=== PATIENT | male | born 1950 | race American Indian/Alaskan Native ===

== ENCOUNTER 2019-02-01 08:47 | Day surgery (SDC) | payer MEDICARE ==
[2019-02-01] MEDS ORDERED: fentaNYL 100 MCG/2 ML INJ IV PRN (10:12)
--- NOTE | 2019-02-01 10:12 | Anesthesia Consultation ---
Anesthesia Consult and Med Hx Date of service: 02/01/19 - Airway Anesthetic Teeth Evaluation: Dentures ROM Head & Neck: Adequate Mental/Hyoid Distance: Adequate Mallampati Class: Class III Intubation Access Assessment: Possibly Difficult - Pulmonary Exam CTA: Yes - Cardiac Exam Cardiac Exam: RRR - Pre-Operative Health Status ASA Pre-Surgery Classification: ASA3 Proposed Anesthetic Plan: General - Pulmonary Hx Smoking: Yes (quit 30yrs ago) Hx Respiratory Symptoms: No Hx Sleep Apnea: No (MICHELLE PRE SCREEN HIGH RISK.) - Cardiovascular System Hx Hypertension: Yes (took antihypertensives this morning) Hx Heart Attack/AMI: No Hx Percutaneous Transluminal Coronary Angioplasty (PTCA): Yes (EJ to OM1 01/15/19) Hx Cardia Arrhythmia: No Hx Pacemaker: No Hx Internal Defibrillator: No Hx Peripheral Vascular Disease: No - Central Nervous System CVA: No - Gastrointestinal Hx Gastroesophageal Reflux Disease: Yes (controlled) - Endocrine Hx Renal Disease: No Hx Liver Disease: No Hx Insulin Dependent Diabetes: No Hx Non-Insulin Dependent Diabetes: No Hx Thyroid Disease: No - Additional Comments Anesthesia Medical History Comments: Patient had LHC as part of pre-op eval and had EJ to OM1 placed on 01/15/19. No angina or TESFAYE since stent placement. No evidence of decompensation on exam. Review of most recent ACC/AHA guidelines recommend minimum 2wks after stent placement for elective surgery (patient currently past 2wk woody). Cardiac clearance on chart. Patient has continued DAPT as instructed. Will discuss with surgeon.
--- NOTE | 2019-02-01 10:12 | Anesthesia Day of Surgery ---
Anesthesia Day of Surgery - Day of Surgery Patient Examined: Yes Patient H&P Reviewed: Yes Patient is NPO: Yes Beta Blockers: Yes Cardiac Clearance: Yes
[2019-02-01] MEDS ORDERED: ceFAZolin/Water 2 GM/20 ML 2 GM/20 ML SYRINGE IV ONE (11:13)
[2019-02-01] MEDS ORDERED: SODIUM CHLORIDE 0.9% 1000 ML 1,000 ML IV SCH (11:15)
[2019-02-01] MEDS ORDERED: ceFAZolin/Water 2 GM/20 ML 2 GM/20 ML SYRINGE IV NR (11:16)
[2019-02-01] MEDS ORDERED: PROPOFOL 200 MG/20 ML VIAL IV ONE (11:36)
[2019-02-01] MEDS ORDERED: fentaNYL 100 MCG/2 ML INJ ONE (11:36)
[2019-02-01] MEDS ORDERED: LIDOCAINE MPF (2%) 20 MG/1 ML VIAL 5 ML ONE (11:37)
[2019-02-01] MEDS ORDERED: WATER FOR IRRIG STERILE 2000 ML IR ONE (12:05)
[2019-02-01] MEDS ORDERED: dexAMETHasone 20 MG/5 ML VIAL ONE (12:18)
[2019-02-01] MEDS ORDERED: ONDANSETRON 4 MG/2 ML INJ ONE (12:18)
[2019-02-01] MEDS ORDERED: PHENYLEPHRINE/NS 1,000 MCG/10 ML SYRINGE (OR USE) IV ONE (12:46)
--- NOTE | 2019-02-01 12:59 | Operative Report ---
PREOPERATIVE DIAGNOSES: Hematuria, elevated PSA and recent cardiac stent. POSTOPERATIVE DIAGNOSES: Hematuria, elevated PSA and recent cardiac stent. PROCEDURE: Cystoscopy, biopsy of bladder and excision of bladder lesion, fulguration retrogrades. SURGEON: Dr. Saeed. ANESTHESIA: General. FINDINGS: This is a gentleman with gross hematuria. He also has a PSA of 12. He could not be taken off the Plavix. As a compromise, we decided to do the cystoscopy to make sure there is no bladder cancer and we would do as minimal as possible because they could not stop the Plavix. In terms of the PSA that he knows he needs a prostate biopsy once he could stop the Plavix for a few days. DESCRIPTION OF PROCEDURE: The patient was brought to the operating room and placed on the operating table. Following induction of anesthesia, he was placed in the lithotomy position, prepped and draped in usual sterile fashion. Cystourethroscopy showed a lesion over the left orifice. Retrograde showed good delicate collecting system and drainage. We did not want to resect deep. We did not want to risk of increased bleeding. Using the biopsy instrument, which was the cold cup curved rigid, we excised the entire lesion down to bladder fibers. Area was cauterized. The patient tolerated the procedure well. We did not do random biopsies, prostate biopsies or anything else like that for fear of increasing the bleeding risk with Plavix. Mccartney catheter 16 was clear. The area was cauterized. The patient tolerated the procedure well. The plan will be followed up prostate biopsies and await pathology. His family notified. JOB# [id number] CHIO/CATHLEEN
--- NOTE | 2019-02-01 13:36 | Fluoroscopy Report ---
FLUOROSCOPY RETROGRADE UROGRAPHY HISTORY: Hematuria FINDINGS: 0.1 minutes of fluoroscopy time was provided by radiology during retrograde urography by josiah najera urologist. 5 fluoroscopic images are presented. There is normal opacification of the renal collecti ng systems bilaterally. No filling defect or abnormal dilatation is demonstrated. Bladder biopsy was performed per the operative notes. Please correlate with the procedural report as needed. Signer Name: Trent Mabry Jr, MD Signed: 02/01/2019 1:31 PM Workstation Name: [id number]
[2019-02-01 13:54] VITALS: BP 147/74
--- NOTE | 2019-02-01 14:05 | Post Operative Note ---
Date of procedure: 02/01/19 Pre-op diagnosis: hematuria Post-op diagnosis: same Findings: bladder tumor inc psa Procedure: cysto excision tumor Anesthesia: GETA Surgeon: JERRY TEMPLE Estimated blood loss: minimal Pathology: list (bladder) Specimen disposition: to lab Condition: stable Disposition: PACU
--- NOTE | 2019-02-01 14:06 | Discharge Summary ---
Short Stay Discharge Plan Activity: other (no straining ) Weight Bearing Status: Full Weight Bearing Diet: low fat, low cholesterol, low salt Special Instructions: other (inc fluids ) Durable Medical Equipment Needed Upon Discharge: other (teach khan care ) Additional Instructions: FOLLOW SURGEON'S INSTRUCTIONS FOLLOW UP WITH SURGEON TAKE MEDICATIONS PRESCRIBED Follow up with: JAZ GARCIA MD [Primary Care Provider] - 7 Days JERRY TEMPLE MD [Staff Physician] - 02/02/19 Forms: [facility]
--- NOTE | 2019-02-01 22:43 | Post Anesthesia Evaluation ---
- Post Anesthesia Evaluation Patient Participated: Yes Airway Patent: Yes Stable Respiratory Function: Yes Nausea/Vomiting: No Temp > 96.8F: Yes Pain Manageable: Yes Adequeate Hydration: Yes Anesthesia Complications: No Block Receding Appropriately: Not Applicable Patient on Ventilator: No
== END 2019-02-01 14:36 | disposition home or self-care (01) ==
LOC: OR 08:47 → EDSEX 11:15 → OR 14:36
PROVIDERS: ATTEND Urology
DX: R31.9 Hematuria, unspecified (principal); R97.20 Elevated prostate specific antigen [PSA]; N32.89 Other specified disorders of bladder; I42.9 Cardiomyopathy, unspecified; K21.9 Gastro-esophageal reflux disease without esophagitis; Z79.899 Other long term (current) drug therapy; Z79.82 Long term (current) use of aspirin; Z87.891 Personal history of nicotine dependence; Z95.5 Presence of coronary angioplasty implant and graft; Z98.890 Other specified postprocedural states
CPT/HCPCS: 36415; 52204; 74420; 84132; 88305; A4217; C1758; J0690; J1100; J2370; J2405; J2704; J3010; J7030; Q9967

== ENCOUNTER 2019-04-19 07:32 | Day surgery (SDC) | payer MEDICARE ==
[2019-04-19] MEDS ORDERED: ONDANSETRON 4 MG/2 ML INJ IV PRN (08:33)
[2019-04-19] MEDS ORDERED: fentaNYL 100 MCG/2 ML INJ IV PRN (08:33)
--- NOTE | 2019-04-19 08:37 | Anesthesia Day of Surgery ---
Anesthesia Day of Surgery - Day of Surgery Patient Examined: Yes Patient H&P Reviewed: Yes Patient is NPO: Yes Beta Blockers: Yes Cardiac Clearance: Yes
--- NOTE | 2019-04-19 08:39 | Anesthesia Consultation ---
Anesthesia Consult and Med Hx Date of service: 04/19/19 - Airway Anesthetic Teeth Evaluation: Chipped, Partials ROM Head & Neck: Adequate Mental/Hyoid Distance: Adequate Mallampati Class: Class IV Intubation Access Assessment: Probably Good - Pre-Operative Health Status ASA Pre-Surgery Classification: ASA3 Proposed Anesthetic Plan: General - Pulmonary Hx Smoking: Yes (quit 30yrs ago) Hx Respiratory Symptoms: No SOB: Yes (SOB) Hx Sleep Apnea: No (MICHELLE PRE SCREEN HIGH RISK.) - Cardiovascular System Hx Hypertension: Yes (X 20 YRS) Hx Coronary Artery Disease: Yes Hx Heart Attack/AMI: No Hx Angina: No Hx Percutaneous Transluminal Coronary Angioplasty (PTCA): Yes (EJ to OM1 01/15/19) Hx Cardia Arrhythmia: No Hx Pacemaker: No Hx Internal Defibrillator: No Hx Peripheral Vascular Disease: No - Central Nervous System CVA: No - Gastrointestinal Hx Gastroesophageal Reflux Disease: Yes (controlled) - Endocrine Hx Renal Disease: No Hx Liver Disease: No Hx Insulin Dependent Diabetes: No Hx Non-Insulin Dependent Diabetes: No Hx Thyroid Disease: No - Other Systems Hx Cancer: Yes (ELEVATED PSA- TO HAVE PROSTATE BX)
[2019-04-19] MEDS ORDERED: ASPIRIN 325 MG TAB PO NR (08:40)
[2019-04-19] MEDS ORDERED: LACTATED RINGERS 1,000 ML IV SCH (09:00)
[2019-04-19] MEDS ORDERED: ceFAZolin/STERILE WATER 2 GM/20 ML SYRINGE IV NR ×2 (09:18→09:33)
[2019-04-19] MEDS ORDERED: ONDANSETRON 4 MG/2 ML INJ ONE (09:34)
[2019-04-19] MEDS ORDERED: LIDOCAINE MPF (2%) 20 MG/1 ML VIAL 5 ML ONE (09:34)
[2019-04-19] MEDS ORDERED: propofoL 200 MG/20 ML VIAL IV ONE (09:35)
[2019-04-19] MEDS ORDERED: fentaNYL 100 MCG/2 ML INJ ONE (09:35)
[2019-04-19] MEDS ORDERED: CLOPIDOGREL 75 MG TAB PO SCH (10:00)
[2019-04-19] MEDS ORDERED: WATER FOR IRRIG STERILE 1,500 ML BOTTLE IR ONE (10:30)
[2019-04-19] MEDS ORDERED: IOHEXOL 300 MG/ML 50ML IV ONE (10:30)
--- NOTE | 2019-04-19 11:24 | Fluoroscopy Report ---
FLUOROSCOPY RETROGRADE UROGRAPHY HISTORY: Bladder neoplasm of uncertain behavior. FINDINGS: Fluoroscopy was provided by radiology during retrograde urography by the urologist. There is normal filling of both renal collecting systems. No filling defect or abnormal dilatation is ident ified. IMPRESSION: Unremarkable lateral retrograde pyelograms Fluoroscopy time: 15 seconds Fluoroscopic images: 5 Signer Name: Trent Mabry Jr, MD Signed: 04/19/2019 11:19 AM Workstation Name: [id number]
[2019-04-19 11:40] VITALS: BP 131/67
--- NOTE | 2019-04-19 12:19 | Post Anesthesia Evaluation ---
- Post Anesthesia Evaluation Patient Participated: Yes Airway Patent: Yes Stable Respiratory Function: Yes Nausea/Vomiting: No Temp > 96.8F: Yes Pain Manageable: Yes Adequeate Hydration: Yes Anesthesia Complications: No
--- NOTE | 2019-04-19 12:45 | Post Operative Note ---
Date of procedure: 04/19/19 Pre-op diagnosis: tcc and inc psa Post-op diagnosis: same Findings: took plavix in holding Procedure: cysto bx rpg Anesthesia: GETA Surgeon: JERRY TEMPLE Estimated blood loss: none Pathology: list (bladder) Specimen disposition: to lab Condition: stable Disposition: PACU
--- NOTE | 2019-04-19 12:46 | Discharge Summary ---
Short Stay Discharge Plan Activity: other (fluids no straining ) Weight Bearing Status: Full Weight Bearing Diet: low fat, low cholesterol, low salt Special Instructions: other (fluids ) Durable Medical Equipment Needed Upon Discharge: other Additional Instructions: AVOID STRAINING. PLEASE CALL FOR F/U APPT. Follow up with: JAZ GARCIA MD [Primary Care Provider] - 7 Days Forms: [facility]
--- NOTE | 2019-04-22 10:36 | Operative Report ---
PREOPERATIVE DIAGNOSES: History of bladder tumor, elevated PSA. Recent cardiac stent. POSTOPERATIVE DIAGNOSES: History of bladder tumor, elevated PSA. Recent cardiac stent. PROCEDURES: Cystoscopy, biopsy, retrograde. SURGEON: Dr. Saeed. ANESTHESIA: General. FINDINGS: This is a gentleman who has not been compliant. Against medical advice he stopped his Plavix. Operative note was dictated. This is a second dictation. DESCRIPTION OF PROCEDURE: The patient was brought to the outpatient operating table. Following induction of anesthesia, placed in lithotomy position, prepped and draped in usual sterile fashion. Cystourethroscopy showed the slight erythema around the old scar. This was biopsied and cauterized without difficulty. Retrograde was carried out, showed no persistent filling defect. We were told that he was given Plavix and aspirin in the holding area because he refused to take it for the last 2 days. Therefore, I did not do prostate biopsies. Once again we were told by the firer tunnel kiln and by the medical records custodian not to do prostate biopsies until July. Now that he got Plavix I did not want to cause issues. He will have this done in July or August. He could not be off the Plavix. The patient knew this and still stopped it for 2-3 days. He was brought to recovery in stable condition. JOB# [id number] CHIO/CATHLEEN
== END 2019-04-19 12:45 | disposition home or self-care (01) ==
LOC: OR 07:32
PROVIDERS: ATTEND Urology
DX: N32.89 Other specified disorders of bladder (principal); R97.20 Elevated prostate specific antigen [PSA]; I42.9 Cardiomyopathy, unspecified; E78.00 Pure hypercholesterolemia, unspecified; I10 Essential (primary) hypertension; K21.9 Gastro-esophageal reflux disease without esophagitis; Z85.51 Personal history of malignant neoplasm of bladder; Z95.5 Presence of coronary angioplasty implant and graft; Z79.899 Other long term (current) drug therapy; Z87.891 Personal history of nicotine dependence; Z98.890 Other specified postprocedural states
CPT/HCPCS: 36415; 52204; 74420; 84132; 88112; 88305; 88342; J2405; J2704; J3010; J7120; Q9967

== ENCOUNTER 2019-07-24 16:52 | Observation (INO) | payer MEDICARE ==
--- NOTE | 2019-07-24 17:50 | Emergency Department Report ---
ED Altered Mental Status HPI - General Chief Complaint: Overdose Stated Complaint: ALTERED MENTAL STATUS Time Seen by Provider: 07/24/19 17:43 Source: EMS Mode of arrival: Stretcher Limitations: Altered Mental Status - History of Present Illness Initial Comments: Patient is 69 years old male with history of coronary artery disease and hypertension. Patient brought to the emergency room via EMS from home for evaluation of altered mental status and decreased responsiveness. EMS stated that patient stated that he took too much Ambien. She denied any suicidal attempt. In the emergency room patient is slightly obtunded but able to answer some question right. He is oriented in place but not time and person. Patient currently denying any chest pain, shortness of breath, abdominal pain. Stroke scale exam is 0. Patient is also pointing to his left hip stating that it hurt however patient is able to lift his left lower extreme with no difficulties. MD Complaint: altered mental status, decreased responsiveness -: This afternoon Severity: moderate Consistency of Symptoms: constant - Related Data Home Medications Medication Instructions Recorded Confirmed Last Taken Aspirin [Adult Aspirin] 81 mg PO DAILY 01/25/19 07/24/19 07/19/19 07:00 Atorvastatin [Lipitor Tab] 80 mg PO QHS 01/25/19 07/24/19 07/18/19 Clopidogrel [Plavix] 75 mg PO QDAY 01/25/19 07/24/19 07/14/19 ISOSORBIDE MONOnitrate [Imdur ER] 30 mg PO DAILY 01/25/19 07/24/19 07/19/19 07:00 Metoprolol [Lopressor] 25 mg PO BID 01/25/19 07/24/19 07/19/19 07:00 Nitroglycerin [Nitrostat] 0.4 mg SL Q5M PRN 01/25/19 07/24/19 Unknown Olmesartan/Hydrochlorothiazide 1 each PO DAILY 01/25/19 07/24/19 07/19/19 07:00 [Olmesartan-Hctz 40-25 mg Tab] Pantoprazole [Protonix] 40 mg PO QDAY 01/25/19 07/24/19 07/19/19 07:00 cloNIDine [Catapres] 0.2 mg PO QHS 01/25/19 07/24/19 07/18/19 traMADoL [Ultram] 50 mg PO Q4HR PRN 01/25/19 07/24/19 07/18/19 Allergies Allergy/AdvReac Type Severity Reaction Status Date / Time No Known Allergies Allergy Verified 01/25/19 16:49 ED Review of Systems ROS: Stated complaint: ALTERED MENTAL STATUS Other details as noted in HPI Comment: All other systems reviewed and negative Constitutional: denies: chills, fever Respiratory: denies: cough, shortness of breath, SOB with exertion Cardiovascular: denies: chest pain, palpitations Gastrointestinal: denies: abdominal pain, nausea, vomiting Musculoskeletal: denies: back pain Neurological: denies: headache, weakness, numbness, paresthesias, confusion, abnormal gait ED Past Medical Hx - Past Medical History Hx Hypertension: Yes Hx Heart Attack/AMI: No Hx GERD: Yes (ON DAILY MEDS) Hx Liver Disease: No Hx Renal Disease: No Hx HIV: No - Surgical History Hx Coronary Stent: Yes (2005 X 1 , 01/15/19 X 1) Hx Pacemaker: No Hx Internal Defibrillator: No - Social History Smoking Status: Never Smoker - Medications Home Medications: Home Medications Medication Instructions Recorded Confirmed Last Taken Type Aspirin [Adult Aspirin] 81 mg PO DAILY 01/25/19 07/24/19 07/19/19 07:00 History Atorvastatin [Lipitor Tab] 80 mg PO QHS 01/25/19 07/24/19 07/18/19 History Clopidogrel [Plavix] 75 mg PO QDAY 01/25/19 07/24/19 07/14/19 History ISOSORBIDE MONOnitrate [Imdur ER] 30 mg PO DAILY 01/25/19 07/24/19 07/19/19 07:00 History Metoprolol [Lopressor] 25 mg PO BID 01/25/19 07/24/19 07/19/19 07:00 History Nitroglycerin [Nitrostat] 0.4 mg SL Q5M PRN 01/25/19 07/24/19 Unknown History Olmesartan/Hydrochlorothiazide 1 each PO DAILY 01/25/19 07/24/19 07/19/19 07:00 History [Olmesartan-Hctz 40-25 mg Tab] Pantoprazole [Protonix] 40 mg PO QDAY 01/25/19 07/24/19 07/19/19 07:00 History cloNIDine [Catapres] 0.2 mg PO QHS 01/25/19 07/24/19 07/18/19 History traMADoL [Ultram] 50 mg PO Q4HR PRN 01/25/19 07/24/19 07/18/19 History ED Physical Exam - General Limitations: Altered Mental Status General appearance: alert, in no apparent distress - Head Head exam: Present: atraumatic, normocephalic, normal inspection - Eye Eye exam: Present: normal appearance - ENT ENT exam: Present: normal exam, normal orophraynx, mucous membranes moist - Neck Neck exam: Present: normal inspection, full ROM. Absent: tenderness, meningismus, lymphadenopathy, thyromegaly - Respiratory Respiratory exam: Present: normal lung sounds bilaterally - Cardiovascular Cardiovascular Exam: Present: regular rate, normal rhythm, normal heart sounds - GI/Abdominal GI/Abdominal exam: Present: soft, normal bowel sounds. Absent: distended, tenderness, guarding, rebound, rigid, organomegaly, mass, bruit, pulsatile mass, hernia - Extremities Exam Extremities exam: Present: normal inspection, full ROM, normal capillary refill. Absent: tenderness, pedal edema, calf tenderness - Back Exam Back exam: Present: normal inspection, full ROM. Absent: CVA tenderness (R), CVA tenderness (L) - Neurological Exam Neurological exam: Present: alert, altered, CN II-XII intact, reflexes normal. Absent: motor sensory deficit - Psychiatric Psychiatric exam: Present: normal mood - Skin Skin exam: Present: warm, intact, normal color ED Course Vital Signs 07/24/19 07/24/19 07/24/19 18:15 18:49 19:57 Pulse Rate 57 L 56 L Respiratory 20 20 Rate Blood Pressure 87/50 82/47 97/48 [Left] O2 Sat by Pulse 97 97 Oximetry - Lab Data Result diagrams: 07/24/19 17:49 07/24/19 17:49 Lab Results 07/24/19 07/24/19 07/24/19 Range/Units 17:49 17:49 17:49 WBC 8.6 (4.5-11.0) K/mm3 RBC 4.59 (3.65-5.03) M/mm3 Hgb 11.8 (11.8-15.2) gm/dl Hct 37.2 (35.5-45.6) % MCV 81 L (84-94) fl MCH 26 L (28-32) pg MCHC 32 (32-34) % RDW 15.0 (13.2-15.2) % Plt Count 273 (140-440) K/mm3 Lymph % (Auto) 25.3 (13.4-35.0) % [place] % (Auto) 7.4 H (0.0-7.3) % Eos % (Auto) 1.0 (0.0-4.3) % Baso % (Auto) 1.1 (0.0-1.8) % Lymph # 2.2 (1.2-5.4) K/mm3 [place] # 0.6 (0.0-0.8) K/mm3 Eos # 0.1 (0.0-0.4) K/mm3 Baso # 0.1 (0.0-0.1) K/mm3 Seg Neutrophils % 65.2 (40.0-70.0) % Seg Neutrophils # 5.6 (1.8-7.7) K/mm3 PT 13.4 (12.2-14.9) Sec. INR 1.04 (0.87-1.13) APTT 28.6 (24.2-36.6) Sec. Sodium 138 (137-145) mmol/L Potassium 4.3 (3.6-5.0) mmol/L Chloride 98.4 (98-107) mmol/L Carbon Dioxide 24 (22-30) mmol/L Anion Gap 20 mmol/L BUN 23 H (9-20) mg/dL Creatinine 2.0 H (0.8-1.5) mg/dL Estimated GFR 40 ml/min BUN/Creatinine Ratio 12 % Glucose 125 H (75-100) mg/dL Lactic Acid (0.7-2.0) mmol/L Calcium 9.1 (8.4-10.2) mg/dL Total Bilirubin 0.40 (0.1-1.2) mg/dL Direct Bilirubin < 0.2 (0-0.2) mg/dL Indirect Bilirubin 0.2 mg/dL AST 16 (5-40) units/L ALT 9 (7-56) units/L Alkaline Phosphatase 122 (35-129) units/L Ammonia (25-60) umol/L Troponin T < 0.010 (0.00-0.029) ng/mL Total Protein 7.6 (6.3-8.2) g/dL Albumin 4.1 (3.9-5) g/dL Albumin/Globulin Ratio 1.2 % TSH (0.270-4.200) mlU/mL Urine Color (Yellow) Urine Turbidity (Clear) Urine pH (5.0-7.0) Ur Specific [place] (1.003-1.030) Urine Protein (Negative) mg/dL Urine Glucose (UA) (Negative) mg/dL Urine Ketones (Negative) mg/dL Urine Blood (Negative) Urine Nitrite (Negative) Urine Bilirubin (Negative) Urine Urobilinogen (<2.0) mg/dL Ur Leukocyte Esterase (Negative) Urine WBC (Auto) (0.0-6.0) /HPF Urine RBC (Auto) (0.0-6.0) /HPF U Epithel Cells (Auto) (0-13.0) /HPF Salicylates (2.8-20.0) mg/dL Urine Opiates Screen Urine Methadone Screen Acetaminophen (10.0-30.0) ug/mL Ur Barbiturates Screen Ur Phencyclidine Scrn Ur Amphetamines Screen U Benzodiazepines Scrn Urine Cocaine Screen U Marijuana (THC) Screen Drugs of Abuse Note Plasma/Serum Alcohol (0-0.07) % 07/24/19 07/24/19 07/24/19 Range/Units 17:49 17:49 17:49 WBC (4.5-11.0) K/mm3 RBC (3.65-5.03) M/mm3 Hgb (11.8-15.2) gm/dl Hct (35.5-45.6) % MCV (84-94) fl MCH (28-32) pg MCHC (32-34) % RDW (13.2-15.2) % Plt Count (140-440) K/mm3 Lymph % (Auto) (13.4-35.0) % [place] % (Auto) (0.0-7.3) % Eos % (Auto) (0.0-4.3) % Baso % (Auto) (0.0-1.8) % Lymph # (1.2-5.4) K/mm3 [place] # (0.0-0.8) K/mm3 Eos # (0.0-0.4) K/mm3 Baso # (0.0-0.1) K/mm3 Seg Neutrophils % (40.0-70.0) % Seg Neutrophils # (1.8-7.7) K/mm3 PT (12.2-14.9) Sec. INR (0.87-1.13) APTT (24.2-36.6) Sec. Sodium (137-145) mmol/L Potassium (3.6-5.0) mmol/L Chloride (98-107) mmol/L Carbon Dioxide (22-30) mmol/L Anion Gap mmol/L BUN (9-20) mg/dL Creatinine (0.8-1.5) mg/dL Estimated GFR ml/min BUN/Creatinine Ratio % Glucose (75-100) mg/dL Lactic Acid 1.80 (0.7-2.0) mmol/L Calcium (8.4-10.2) mg/dL Total Bilirubin (0.1-1.2) mg/dL Direct Bilirubin (0-0.2) mg/dL Indirect Bilirubin mg/dL AST (5-40) units/L ALT (7-56) units/L Alkaline Phosphatase (35-129) units/L Ammonia 53.0 (25-60) umol/L Troponin T (0.00-0.029) ng/mL Total Protein (6.3-8.2) g/dL Albumin (3.9-5) g/dL Albumin/Globulin Ratio % TSH 1.570 (0.270-4.200) mlU/mL Urine Color (Yellow) Urine Turbidity (Clear) Urine pH (5.0-7.0) Ur Specific [place] (1.003-1.030) Urine Protein (Negative) mg/dL Urine Glucose (UA) (Negative) mg/dL Urine Ketones (Negative) mg/dL Urine Blood (Negative) Urine Nitrite (Negative) Urine Bilirubin (Negative) Urine Urobilinogen (<2.0) mg/dL Ur Leukocyte Esterase (Negative) Urine WBC (Auto) (0.0-6.0) /HPF Urine RBC (Auto) (0.0-6.0) /HPF U Epithel Cells (Auto) (0-13.0) /HPF Salicylates (2.8-20.0) mg/dL Urine Opiates Screen Urine Methadone Screen Acetaminophen (10.0-30.0) ug/mL Ur Barbiturates Screen Ur Phencyclidine Scrn Ur Amphetamines Screen U Benzodiazepines Scrn Urine Cocaine Screen U Marijuana (THC) Screen Drugs of Abuse Note Plasma/Serum Alcohol (0-0.07) % 07/24/19 07/24/19 07/24/19 Range/Units 17:49 17:49 17:49 WBC (4.5-11.0) K/mm3 RBC (3.65-5.03) M/mm3 Hgb (11.8-15.2) gm/dl Hct (35.5-45.6) % MCV (84-94) fl MCH (28-32) pg MCHC (32-34) % RDW (13.2-15.2) % Plt Count (140-440) K/mm3 Lymph % (Auto) (13.4-35.0) % [place] % (Auto) (0.0-7.3) % Eos % (Auto) (0.0-4.3) % Baso % (Auto) (0.0-1.8) % Lymph # (1.2-5.4) K/mm3 [place] # (0.0-0.8) K/mm3 Eos # (0.0-0.4) K/mm3 Baso # (0.0-0.1) K/mm3 Seg Neutrophils % (40.0-70.0) % Seg Neutrophils # (1.8-7.7) K/mm3 PT (12.2-14.9) Sec. INR (0.87-1.13) APTT (24.2-36.6) Sec. Sodium (137-145) mmol/L Potassium (3.6-5.0) mmol/L Chloride (98-107) mmol/L Carbon Dioxide (22-30) mmol/L Anion Gap mmol/L BUN (9-20) mg/dL Creatinine (0.8-1.5) mg/dL Estimated GFR ml/min BUN/Creatinine Ratio % Glucose (75-100) mg/dL Lactic Acid (0.7-2.0) mmol/L Calcium (8.4-10.2) mg/dL Total Bilirubin (0.1-1.2) mg/dL Direct Bilirubin (0-0.2) mg/dL Indirect Bilirubin mg/dL AST (5-40) units/L ALT (7-56) units/L Alkaline Phosphatase (35-129) units/L Ammonia (25-60) umol/L Troponin T (0.00-0.029) ng/mL Total Protein (6.3-8.2) g/dL Albumin (3.9-5) g/dL Albumin/Globulin Ratio % TSH (0.270-4.200) mlU/mL Urine Color (Yellow) Urine Turbidity (Clear) Urine pH (5.0-7.0) Ur Specific [place] (1.003-1.030) Urine Protein (Negative) mg/dL Urine Glucose (UA) (Negative) mg/dL Urine Ketones (Negative) mg/dL Urine Blood (Negative) Urine Nitrite (Negative) Urine Bilirubin (Negative) Urine Urobilinogen (<2.0) mg/dL Ur Leukocyte Esterase (Negative) Urine WBC (Auto) (0.0-6.0) /HPF Urine RBC (Auto) (0.0-6.0) /HPF U Epithel Cells (Auto) (0-13.0) /HPF Salicylates < 0.3 L (2.8-20.0) mg/dL Urine Opiates Screen Urine Methadone Screen Acetaminophen < 5.0 L (10.0-30.0) ug/mL Ur Barbiturates Screen Ur Phencyclidine Scrn Ur Amphetamines Screen U Benzodiazepines Scrn Urine Cocaine Screen U Marijuana (THC) Screen Drugs of Abuse Note Plasma/Serum Alcohol < 0.01 (0-0.07) % 07/24/19 07/24/19 Range/Units 18:55 18:55 WBC (4.5-11.0) K/mm3 RBC (3.65-5.03) M/mm3 Hgb (11.8-15.2) gm/dl Hct (35.5-45.6) % MCV (84-94) fl MCH (28-32) pg MCHC (32-34) % RDW (13.2-15.2) % Plt Count (140-440) K/mm3 Lymph % (Auto) (13.4-35.0) % [place] % (Auto) (0.0-7.3) % Eos % (Auto) (0.0-4.3) % Baso % (Auto) (0.0-1.8) % Lymph # (1.2-5.4) K/mm3 [place] # (0.0-0.8) K/mm3 Eos # (0.0-0.4) K/mm3 Baso # (0.0-0.1) K/mm3 Seg Neutrophils % (40.0-70.0) % Seg Neutrophils # (1.8-7.7) K/mm3 PT (12.2-14.9) Sec. INR (0.87-1.13) APTT (24.2-36.6) Sec. Sodium (137-145) mmol/L Potassium (3.6-5.0) mmol/L Chloride (98-107) mmol/L Carbon Dioxide (22-30) mmol/L Anion Gap mmol/L BUN (9-20) mg/dL Creatinine (0.8-1.5) mg/dL Estimated GFR ml/min BUN/Creatinine Ratio % Glucose (75-100) mg/dL Lactic Acid (0.7-2.0) mmol/L Calcium (8.4-10.2) mg/dL Total Bilirubin (0.1-1.2) mg/dL Direct Bilirubin (0-0.2) mg/dL Indirect Bilirubin mg/dL AST (5-40) units/L ALT (7-56) units/L Alkaline Phosphatase (35-129) units/L Ammonia (25-60) umol/L Troponin T (0.00-0.029) ng/mL Total Protein (6.3-8.2) g/dL Albumin (3.9-5) g/dL Albumin/Globulin Ratio % TSH (0.270-4.200) mlU/mL Urine Color [place] (Yellow) Urine Turbidity Clear (Clear) Urine pH 5.0 (5.0-7.0) Ur Specific [place] 1.029 (1.003-1.030) Urine Protein <15 mg/dl (Negative) mg/dL Urine Glucose (UA) Neg (Negative) mg/dL Urine Ketones Neg (Negative) mg/dL Urine Blood Neg (Negative) Urine Nitrite Neg (Negative) Urine Bilirubin Neg (Negative) Urine Urobilinogen < 2.0 (<2.0) mg/dL Ur Leukocyte Esterase Tr (Negative) Urine WBC (Auto) 2.0 (0.0-6.0) /HPF Urine RBC (Auto) 2.0 (0.0-6.0) /HPF U Epithel Cells (Auto) 2.0 (0-13.0) /HPF Salicylates (2.8-20.0) mg/dL Urine Opiates Screen Presumptive negative Urine Methadone Screen Presumptive negative Acetaminophen (10.0-30.0) ug/mL Ur Barbiturates Screen Presumptive positive Ur Phencyclidine Scrn Presumptive negative Ur Amphetamines Screen Presumptive negative U Benzodiazepines Scrn Presumptive negative Urine Cocaine Screen Presumptive negative U Marijuana (THC) Screen Presumptive negative Drugs of Abuse Note Disclamer Plasma/Serum Alcohol (0-0.07) % - EKG Data -: EKG Interpreted by Me EKG shows normal: sinus rhythm Rate: tachycardia Interpretation: no acute changes - Radiology Data Radiology results: report reviewed - Medical Decision Making Patient is 69 years old male with history of coronary artery disease and hypertension. Patient brought to the emergency room via EMS from home for evaluation of altered mental status and decreased responsiveness. EMS stated that patient stated that he took too much Ambien. She denied any suicidal attempt. In the emergency room patient is slightly obtunded but able to answer some question right. He is oriented in place but not time and person. Patient currently denying any chest pain, shortness of breath, abdominal pain. Stroke scale exam is 0. Patient is also pointing to his left hip stating that it hurt however patient is able to lift his left lower extreme with no difficulties. Patient found to have a blood pressure of 80/42. Patient received normal saline 1 L with significant improvement his blood pressure. EKG showed sinus tachycardia with no ST elevation. Labs reviewed and is unremarkable. Patient discussed with his who stated that he has been altered for the last 3 days since he had his prostate biopsy few days ago. She stated that he took extra dose of his Ambien and may be his nitroglycerin also. Patient CT brain is negative for acute finding. Left hip x-ray is unremarkable. I discussed the patient with Dr. Delarosa, he agreed to admit the patient for observation and further management. Critical Care Time: Yes Critical care time in (mins) excluding proc time.: 30 Critical care attestation.: If time is entered above; I have spent that time in minutes in the direct care of this critically ill patient, excluding procedure time. ED Disposition Clinical Impression: Altered mental status, Hypotension, Accidental drug overdose Disposition: [id number] OP ADMIT IP TO THIS HOSP Is pt being admited?: Yes Condition: Stable Referrals: PRIMARY CARE, [Primary Care Provider] - 3-5 Days
[2019-07-24 18:25] LABS: Basophils # (Auto) 0.1 K/mm3 (0.0-0.1); Basophils % (Auto) 1.1 % (0.0-1.8); Eosinophils # (Auto) 0.1 K/mm3 (0.0-0.4); Hematocrit 37.2 % (35.5-45.6); Hemoglobin 11.8 gm/dl (11.8-15.2); Lymphocytes # (Auto) 2.2 K/mm3 (1.2-5.4); Lymphocytes % (Auto) 25.3 % (13.4-35.0); Mean Corpuscular HGB Conc 32 % (32-34); Mean Corpuscular Volume 81 fl (84-94); Monocytes # (Auto) 0.6 K/mm3 (0.0-0.8); Monocytes % (Auto) 7.4 % (0.0-7.3); Platelet Count 273 K/mm3 (140-440); Red Blood Count 4.59 M/mm3 (3.65-5.03)
[2019-07-24 18:31] LABS: INR 1.04 (0.87-1.13)
[2019-07-24 18:32] LABS: Partial Thromboplastin Time 28.6 Sec. (24.2-36.6)
[2019-07-24] MEDS ORDERED: SODIUM CHLORIDE 0.9% 1000 ML 1,000 ML IV ONE ×2 (18:42→20:27)
[2019-07-24] MEDS ORDERED: SODIUM CHLORIDE 0.9% 1000 ML 1,000 ML ONE (18:45)
[2019-07-24 18:50] LABS: Alanine Aminotransferase 9 units/L (7-56); Albumin 4.1 g/dL (3.9-5); BUN/Creatinine Ratio 12; Blood Urea Nitrogen 23 mg/dL (9-20); Calcium 9.1 mg/dL (8.4-10.2); Hemolysis Index 3
--- NOTE | 2019-07-24 18:50 | Cat Scan Report ---
NONENHANCED CT SCAN OF THE HEAD: INDICATION / CLINICAL INFORMATION: 69 years Male; Altered Mental Status. TECHNIQUE: Routine CT head without contrast. All CT scans at this location are performed using CT dos e reduction for ALARA by means of automated exposure control. COMPARISON: None. FINDINGS: BRAIN / INTRACRANIAL CONTENTS: No acute hemorrhage, mass effect, midline shift, hydrocephalus, or ac [place], large territorial infarct. Chronic ischemic changes are seen in the right lentiform nucleus, put amen bilaterally, right centrum semiovale and in the corpus striatum. These are due to chronic small vessel disease. White matter low-attenuation lesions due to chronic small vessel disease seen. CRANIOCERVICAL JUNCTION: No significant abnormality. ORBITS: No significant abnormality of visualized orbits. SINUSES / MASTOIDS: Incidental retention cyst is seen in the left maxillary sinus. ADDITIONAL FINDINGS: None. IMPRESSION: No acute focal parenchymal lesion in the brain Signer Name: Bela Christiansen MD Signed: 07/24/2019 6:45 PM Workstation Name: [id number]
--- NOTE | 2019-07-24 18:57 | XRay Report ---
LEFT HIP RADIOGRAPH, 2 VIEWS INDICATION / CLINICAL INFORMATION: hip pain COMPARISON: None available. FINDINGS: BONES / JOINT(S): No acute displaced fracture or subluxation. Mild degenerative change of both hips. SOFT TISSUES: No significant abnormality. ADDITIONAL FINDINGS: None. Signer Name: Angie Fournier MD Signed: 07/24/2019 6:53 PM Workstation Name: [email or web address]
--- NOTE | 2019-07-24 18:58 | XRay Report ---
CHEST 1 VIEW INDICATION / CLINICAL INFORMATION: Altered Mental Status. COMPARISON: None available. FINDINGS: SUPPORT DEVICES: None. HEART / MEDIASTINUM: No significant abnormality. LUNGS / PLEURA: Mild bibasilar subsegmental atelectasis. No focal pulmonary consolidation. No pleural effusion. No pneumothorax. ADDITIONAL FINDINGS: No significant additional findings. IMPRESSION: 1. Mild bibasilar subsegmental atelectasis. Otherwise no significant abnormality identified. Signer Name: Angie Fournier MD Signed: 07/24/2019 6:54 PM Workstation Name: [id number]
[2019-07-24 19:03] LABS: Bilirubin,Direct < 0.2 mg/dL (0-0.2)
[2019-07-24 19:21] LABS: Bilirubin,Urine NEG (Negative); Blood,Urine NEG (Negative); Color,Urine Straw (Yellow); Protein,Urine <15 mg/dL mg/dL (Negative); Urobilinogen,Urine < 2.0 mg/dL (<2.0)
[2019-07-24 19:27] LABS: Amphetamine Screen,Urine PRESUMPTIVE NEGATIVE; Benzodiazepines Screen,Urine PRESUMPTIVE NEGATIVE; Cannabinoid Screen,Urine PRESUMPTIVE NEGATIVE; Cocaine Screen,Urine PRESUMPTIVE NEGATIVE; Methadone Screen,Urine PRESUMPTIVE NEGATIVE; Opiate Screen,Urine PRESUMPTIVE NEGATIVE
[2019-07-24] MEDS ORDERED: ACETAMINOPHEN 325 MG TAB PO PRN (21:46)
[2019-07-24] MEDS ORDERED: MAGNESIUM HYDROXIDE (MOM) ORAL LIQD UDC PO PRN (21:46)
[2019-07-24] MEDS ORDERED: ONDANSETRON 4 MG/2 ML INJ IV PRN (21:46)
--- NOTE | 2019-07-24 21:53 | History and Physical Report ---
History of Present Illness Date of examination: 07/24/19 Date of admission: 07/24/2019 Chief complaint: Altered mental status History of present illness: 69-year-old male with known history of coronary artery disease and hypertension brought into the emergency room today via EMS for changes in mental status and decreased responsiveness. Patient's had informed EMS that patient may have taken an overdose of his sleeping medication Ambien. He has been no homicidal or suicidal ideations. Upon arrival in the emergency room patient was said to be up obtunded. There has been no history of fever or chills, no chest pain or shortness of breath, no nausea vomiting, no diarrhea, no hematuria or dysuria. No headache or dizziness. Patient has become more alert and oriented during this history and physical and indicates he also took some tramadol for pain. He was slightly hypotensive upon arrival in the emergency room with systolic blood pressure in the 80s and was subsequently given some IV fluid with significant improvement in his blood pressure. His urine drug screen reveals barbiturates. All other work-up were unremarkable. Past History Past Medical History: CAD, hypertension, hyperlipidemia Past Surgical History: Other (Cardiac stent placement in 2015 and 2018) Social history: no significant social history Family history: no significant family history Medications and Allergies Allergies Allergy/AdvReac Type Severity Reaction Status Date / Time No Known Allergies Allergy Verified 01/25/19 16:49 Home Medications Medication Instructions Recorded Confirmed Last Taken Type Aspirin [Adult Aspirin] 81 mg PO DAILY 01/25/19 07/24/19 07/19/19 07:00 History Atorvastatin [Lipitor Tab] 80 mg PO QHS 01/25/19 07/24/19 07/18/19 History Clopidogrel [Plavix] 75 mg PO QDAY 01/25/19 07/24/19 07/14/19 History ISOSORBIDE MONOnitrate [Imdur ER] 30 mg PO DAILY 01/25/19 07/24/19 07/19/19 07:00 History Metoprolol [Lopressor] 25 mg PO BID 01/25/19 07/24/19 07/19/19 07:00 History Nitroglycerin [Nitrostat] 0.4 mg SL Q5M PRN 01/25/19 07/24/19 Unknown History Olmesartan/Hydrochlorothiazide 1 each PO DAILY 01/25/19 07/24/19 07/19/19 07:00 History [Olmesartan-Hctz 40-25 mg Tab] Pantoprazole [Protonix] 40 mg PO QDAY 01/25/19 07/24/19 07/19/19 07:00 History cloNIDine [Catapres] 0.2 mg PO QHS 01/25/19 07/24/19 07/18/19 History traMADoL [Ultram] 50 mg PO Q4HR PRN 01/25/19 07/24/19 07/18/19 History Active Meds: Active Medications Sodium Chloride (Nacl 0.9% 1000 Ml) 1,000 mls @ 250 mls/hr IV ONCE ONE Stop: 07/25/19 00:26 Last Admin: 07/24/19 21:16 Dose: 250 mls/hr Documented by: Review of Systems Constitutional: no fever, no chills Ears, nose, mouth and throat: no nasal congestion, no sore throat Cardiovascular: no chest pain, no palpitations Respiratory: no cough, no shortness of breath Gastrointestinal: no abdominal pain, no nausea, no vomiting, no diarrhea Genitourinary Male: no dysuria, no hematuria Musculoskeletal: no neck pain, no low back pain Integumentary: no rash, no pruritis Neurological: no headaches, no change in mentation Psychiatric: no anxiety, no depression Exam - Constitutional Vitals: Temp Pulse Resp BP Pulse Ox 56 L 20 97/48 97 07/24/19 18:49 07/24/19 18:49 07/24/19 19:57 07/24/19 18:49 General appearance: Present: no acute distress, well-nourished - EENT Eyes: Present: PERRL, EOM intact ENT: hearing intact, clear oral mucosa, dentition normal - Neck Neck: Present: supple - Respiratory Respiratory effort: normal Respiratory: bilateral: CTA - Cardiovascular Rhythm: regular Heart Sounds: Present: S1 & S2 - Extremities Extremities: no ischemia, pulses intact, pulses symmetrical, No edema, Full ROM Peripheral Pulses: within normal limits - Abdominal General gastrointestinal: Present: soft, non-tender, non-distended, normal bowel sounds - Integumentary Integumentary: Present: clear, warm, dry. Absent: jaundice, rash - Musculoskeletal Musculoskeletal: strength equal bilaterally - Psychiatric Psychiatric: appropriate mood/affect, intact judgment & insight, cooperative - Neurologic Neurologic: CNII-XII intact, moves all extremities HEART Score - HEART Score Troponin: Troponin T < 0.010 ng/mL (0.00-0.029) 07/24/19 17:49 Results - Labs CBC & Chem 7: 07/24/19 17:49 07/24/19 17:49 Labs: Abnormal lab results 07/24/19 07/24/19 07/24/19 Range/Units 17:49 17:49 17:49 MCV 81 L (84-94) fl MCH 26 L (28-32) pg [place] % (Auto) 7.4 H (0.0-7.3) % BUN 23 H (9-20) mg/dL Creatinine 2.0 H (0.8-1.5) mg/dL Glucose 125 H (75-100) mg/dL Salicylates < 0.3 L (2.8-20.0) mg/dL Acetaminophen (10.0-30.0) ug/mL 07/24/19 Range/Units 17:49 MCV (84-94) fl MCH (28-32) pg [place] % (Auto) (0.0-7.3) % BUN (9-20) mg/dL Creatinine (0.8-1.5) mg/dL Glucose (75-100) mg/dL Salicylates (2.8-20.0) mg/dL Acetaminophen < 5.0 L (10.0-30.0) ug/mL Assessment and Plan - Patient Problems (1) Accidental drug overdose Current Visit: Yes Status: Acute Plan to address problem: Patient was said to have taken an accidental overdose Ambien in addition to taking some tramadol for pain. He became hypotensive in the emergency room but blood pressure has improved since given IV fluid. (2) Altered mental status Current Visit: Yes Status: Acute Plan to address problem: Possibly secondary to the accidental overdose. We will monitor mental status (3) Hypotension Current Visit: Yes Status: Acute Plan to address problem: Blood pressure stable with IV fluid. We will continue to monitor vital signs (4) DVT prophylaxis Current Visit: Yes Status: Acute Plan to address problem: Patient placed on subcutaneous heparin. (5) Full code status Current Visit: Yes Status: Acute
[2019-07-24] MEDS ORDERED: SODIUM CHLORIDE 0.9% 1000 ML 1,000 ML IV SCH (22:00)
[2019-07-24] MEDS ORDERED: ACETAMINOPHEN 325 MG TAB ONE (22:47)
[2019-07-25 05:12] VITALS: BP 147/70
[2019-07-25 05:57] LABS: Basophils % (Auto) 0.5 % (0.0-1.8); Eosinophils # (Auto) 0.1 K/mm3 (0.0-0.4); Eosinophils % (Auto) 1.6 % (0.0-4.3); Hematocrit 31.7 % (35.5-45.6); Hemoglobin 10.5 gm/dl (11.8-15.2); Lymphocytes # (Auto) 2.3 K/mm3 (1.2-5.4); Lymphocytes % (Auto) 29.1 % (13.4-35.0); Mean Corpuscular HGB Conc 33 % (32-34); Mean Corpuscular Volume 79 fl (84-94); Monocytes # (Auto) 0.7 K/mm3 (0.0-0.8); Monocytes % (Auto) 8.4 % (0.0-7.3); Platelet Count 210 K/mm3 (140-440)
[2019-07-25 06:09] LABS: Calcium 8.3 mg/dL (8.4-10.2)
[2019-07-25 06:16] LABS: INR 1.06 (0.87-1.13)
[2019-07-25] MEDS: HEPARIN 5,000 UNIT/1 ML VIAL SUB-Q SCH ×2 (06:35→13:13)
--- NOTE | 2019-07-25 09:49 | Progress Note ---
History Interval history: 69-year-old male with known history of coronary artery disease and hypertension brought into the emergency room today via EMS for changes in mental status and decreased responsiveness. Patient's had informed EMS that patient may have taken an overdose of his sleeping medication Ambien. Hospitalist Physical - Constitutional Vitals: Temp Pulse Resp BP Pulse Ox 98.0 F 56 L 20 147/70 93 07/25/19 04:03 07/25/19 04:03 07/25/19 04:03 07/25/19 04:03 07/25/19 04:03 General appearance: Present: no acute distress, well-nourished HEART Score - HEART Score Troponin: Troponin T < 0.010 ng/mL (0.00-0.029) 07/24/19 17:49 Results - Labs CBC & Chem 7: 07/25/19 04:56 07/25/19 04:56 Labs: Laboratory Last Values WBC 8.0 K/mm3 (4.5-11.0) 07/25/19 04:56 RBC 4.00 M/mm3 (3.65-5.03) 07/25/19 04:56 Hgb 10.5 gm/dl (11.8-15.2) L 07/25/19 04:56 Hct 31.7 % (35.5-45.6) L 07/25/19 04:56 MCV 79 fl (84-94) L 07/25/19 04:56 MCH 26 pg (28-32) L 07/25/19 04:56 MCHC 33 % (32-34) 07/25/19 04:56 RDW 15.0 % (13.2-15.2) 07/25/19 04:56 Plt Count 210 K/mm3 (140-440) 07/25/19 04:56 Lymph % (Auto) 29.1 % (13.4-35.0) 07/25/19 04:56 [place] % (Auto) 8.4 % (0.0-7.3) H 07/25/19 04:56 Eos % (Auto) 1.6 % (0.0-4.3) 07/25/19 04:56 Baso % (Auto) 0.5 % (0.0-1.8) 07/25/19 04:56 Lymph # 2.3 K/mm3 (1.2-5.4) 07/25/19 04:56 [place] # 0.7 K/mm3 (0.0-0.8) 07/25/19 04:56 Eos # 0.1 K/mm3 (0.0-0.4) 07/25/19 04:56 Baso # 0.0 K/mm3 (0.0-0.1) 07/25/19 04:56 Seg Neutrophils % 60.4 % (40.0-70.0) 07/25/19 04:56 Seg Neutrophils # 4.8 K/mm3 (1.8-7.7) 07/25/19 04:56 PT 13.6 Sec. (12.2-14.9) 07/25/19 04:56 INR 1.06 (0.87-1.13) 07/25/19 04:56 APTT 28.6 Sec. (24.2-36.6) 07/24/19 17:49 Sodium 138 mmol/L (137-145) 07/25/19 04:56 Potassium 4.0 mmol/L (3.6-5.0) 07/25/19 04:56 Chloride 100.5 mmol/L (98-107) 07/25/19 04:56 Carbon Dioxide 26 mmol/L (22-30) 07/25/19 04:56 Anion Gap 16 mmol/L 07/25/19 04:56 BUN 24 mg/dL (9-20) H 07/25/19 04:56 Creatinine 1.6 mg/dL (0.8-1.5) H 07/25/19 04:56 Estimated GFR 52 ml/min 07/25/19 04:56 BUN/Creatinine Ratio 15 % 07/25/19 04:56 Glucose 99 mg/dL (75-100) 07/25/19 04:56 Lactic Acid 1.80 mmol/L (0.7-2.0) 07/24/19 17:49 Calcium 8.3 mg/dL (8.4-10.2) L 07/25/19 04:56 Total Bilirubin 0.40 mg/dL (0.1-1.2) 07/24/19 17:49 Direct Bilirubin < 0.2 mg/dL (0-0.2) 07/24/19 17:49 Indirect Bilirubin 0.2 mg/dL 07/24/19 17:49 AST 16 units/L (5-40) 07/24/19 17:49 ALT 9 units/L (7-56) 07/24/19 17:49 Alkaline Phosphatase 122 units/L (35-129) 07/24/19 17:49 Ammonia 53.0 umol/L (25-60) 07/24/19 17:49 Troponin T < 0.010 ng/mL (0.00-0.029) 07/24/19 17:49 Total Protein 7.6 g/dL (6.3-8.2) 07/24/19 17:49 Albumin 4.1 g/dL (3.9-5) 07/24/19 17:49 Albumin/Globulin Ratio 1.2 % 07/24/19 17:49 TSH 1.570 mlU/mL (0.270-4.200) 07/24/19 17:49 Urine Color Straw (Yellow) 07/24/19 18:55 Urine Turbidity Clear (Clear) 07/24/19 18:55 Urine pH 5.0 (5.0-7.0) 07/24/19 18:55 Ur Specific [place] 1.029 (1.003-1.030) 07/24/19 18:55 Urine Protein <15 mg/dl mg/dL (Negative) 07/24/19 18:55 Urine Glucose (UA) Neg mg/dL (Negative) 07/24/19 18:55 Urine Ketones Neg mg/dL (Negative) 07/24/19 18:55 Urine Blood Neg (Negative) 07/24/19 18:55 Urine Nitrite Neg (Negative) 07/24/19 18:55 Urine Bilirubin Neg (Negative) 07/24/19 18:55 Urine Urobilinogen < 2.0 mg/dL (<2.0) 07/24/19 18:55 Ur Leukocyte Esterase Tr (Negative) 07/24/19 18:55 Urine WBC (Auto) 2.0 /HPF (0.0-6.0) 07/24/19 18:55 Urine RBC (Auto) 2.0 /HPF (0.0-6.0) 07/24/19 18:55 U Epithel Cells (Auto) 2.0 /HPF (0-13.0) 07/24/19 18:55 Salicylates < 0.3 mg/dL (2.8-20.0) L 07/24/19 17:49 Urine Opiates Screen Presumptive negative 07/24/19 18:55 Urine Methadone Screen Presumptive negative 07/24/19 18:55 Acetaminophen < 5.0 ug/mL (10.0-30.0) L 07/24/19 17:49 Ur Barbiturates Screen Presumptive positive 07/24/19 18:55 Ur Phencyclidine Scrn Presumptive negative 07/24/19 18:55 Ur Amphetamines Screen Presumptive negative 07/24/19 18:55 U Benzodiazepines Scrn Presumptive negative 07/24/19 18:55 Urine Cocaine Screen Presumptive negative 07/24/19 18:55 U Marijuana (THC) Screen Presumptive negative 07/24/19 18:55 Drugs of Abuse Note Disclamer 07/24/19 18:55 Plasma/Serum Alcohol < 0.01 % (0-0.07) 07/24/19 17:49 [place]art[place]/IV: Voiding Method Urinal IV Catheter Type [Left Forearm INT / Saline Lock ] Active Medications - Current Medications Current Medications: Generic Name Dose Route Start Last Admin Trade Name Freq PRN Reason Stop Dose Admin Acetaminophen 650 mg 07/24/19 21:46 07/25/19 00:18 Tylenol PO 650 mg Q4H PRN Administration Pain MILD(1-3)/Fever >100.5/CAMARENA Heparin Sodium (Porcine) 5,000 unit 07/25/19 06:00 07/25/19 06:35 Heparin SUB-Q Not Given Q8HR JOSEPH Sodium Chloride 1,000 mls @ 125 mls/hr 07/24/19 22:00 07/25/19 06:47 Nacl 0.9% 1000 Ml IV 125 mls/hr DIRECT JOSEPH Administration Magnesium Hydroxide 30 ml 07/24/19 21:46 Milk Of Magnesia PO Q4H PRN Constipation Ondansetron HCl 4 mg 07/24/19 21:46 Zofran IV Q8H PRN Nausea And Vomiting Sodium Chloride 10 ml 07/24/19 22:00 07/25/19 09:38 Sodium Chloride Flush Syringe 10 Ml IV 10 ml BID JOSEPH Administration Sodium Chloride 10 ml 07/24/19 21:46 Sodium Chloride Flush Syringe 10 Ml IV PRN PRN LINE FLUSH
--- NOTE | 2019-07-25 09:53 | Discharge Summary ---
Providers - Providers Date of Admission: 07/24/19 21:40 Date of discharge: 07/25/19 Attending physician: BONNY SIMMONS Primary care physician: STRATEGIES ANALYST Hospitalization Reason for admission: AMS Condition: Stable Hospital course: 69-year-old male with known history of coronary artery disease and hypertension brought into the emergency room today via EMS for changes in mental status with decreased responsiveness. Patient's had informed EMS that patient may have taken an overdose of his sleeping medication Ambien. Pt. is back to baseline MS now. Upon arrival in the emergency room patient was lethargic and hypotensive. Blood pressure was noted to be in the 80s systolically. His urine drug screen revealed barbiturates. The patient was admitted for observation and received IV fluid hydration with normalization of blood pressure. Patient also returned back to his baseline mental status. I had a long discussion with the who confirms that patient has been taking his medications incorrectly. She attempted and offered to give him his medications which was working well but patient refused the past couple of days and felt like his was "babying" him. I counseled the with regards to importance of medical compliance. She agreed and and tells me that patient is to have follow-up with his PCP tomorrow for further counseling. Dedicated discharge time 35 minutes. Disposition: [id number] TO HOME OR SELFCARE Time spent for discharge: 35 - Discharge Diagnoses (1) Accidental drug overdose Status: Acute (2) Altered mental status Status: Acute (3) Hypotension Status: Acute Core Measure Documentation - Palliative Care Palliative Care/ Comfort Measures: Not Applicable - Core Measures Any of the following diagnoses?: none Exam - Constitutional Vitals: Temp Pulse Resp BP Pulse Ox 98.0 F 56 L 20 147/70 93 07/25/19 04:03 07/25/19 04:03 07/25/19 04:03 07/25/19 04:03 07/25/19 04:03 General appearance: Present: no acute distress, well-nourished - EENT Eyes: Present: PERRL ENT: hearing intact, clear oral mucosa - Neck Neck: Present: supple, normal ROM - Respiratory Respiratory effort: normal Respiratory: bilateral: CTA - Cardiovascular Heart Sounds: Present: S1 & S2. Absent: rub, click - Extremities Extremities: pulses symmetrical, No edema Peripheral Pulses: within normal limits - Abdominal General gastrointestinal: Present: soft, non-tender, non-distended, normal bowel sounds Male genitourinary: Present: normal - Integumentary Integumentary: Present: clear, warm, dry - Musculoskeletal Musculoskeletal: gait normal, strength equal bilaterally - Psychiatric Psychiatric: appropriate mood/affect, intact judgment & insight - Neurologic Neurologic: CNII-XII intact, moves all extremities Plan Activity: advance as tolerated Weight Bearing Status: Weight Bear as Tolerated Diet: regular Follow up with: PRIMARY CARE, [Primary Care Provider] - 3-5 Days
== END 2019-07-25 14:00 | disposition home or self-care (01) ==
LOC: ED 16:52 → 4A 21:40
PROVIDERS: ADMIT Internal Medicine Geriatric Medicine; ATTEND Hospitalist
DX: T42.6X1A Poisoning by other antiepileptic and sedative-hypnotic drugs, accidental (unintentional), initial encounter (principal); R41.82 Altered mental status, unspecified; I95.9 Hypotension, unspecified; I10 Essential (primary) hypertension; E78.5 Hyperlipidemia, unspecified; I25.10 Atherosclerotic heart disease of native coronary artery without angina pectoris; K21.9 Gastro-esophageal reflux disease without esophagitis; Z95.5 Presence of coronary angioplasty implant and graft; Z79.82 Long term (current) use of aspirin; Z79.02 Long term (current) use of antithrombotics/antiplatelets; Z79.899 Other long term (current) drug therapy; X58.XXXA Exposure to other specified factors, initial encounter; Y93.89 Activity, other specified; Y92.89 Other specified places as the place of occurrence of the external cause
CPT/HCPCS: 36415; 70450; 71045; 73502; 80048; 80076; 80307; 81001; 82140; 84443; 84484; 85025; 85610; 85730; 93005; 96360; 96361; 99291; G0378; J7030; 80320; G0480; J1644

== ENCOUNTER 2020-04-03 07:30 | Outpatient (CLI) | payer MEDICARE ==
--- NOTE | 2020-04-03 08:39 | Cat Scan Report ---
CT ABDOMEN AND PELVIS WITHOUT CONTRAST HISTORY: MALIGNANT NEOPLASM OF PROSTATE. Prostate cancer restaging exam COMPARISON: CT abdomen/pelvis from 08/18/2019 TECHNIQUE: CT images of the abdomen and pelvis were obtained without administration of intravenous co ntrast. All CT scans at this location are performed using CT dose reduction for ALARA by means of au tomated exposure control. FINDINGS: Lungs/bones: There is minimal basilar atelectasis. Lung bases are otherwise clear. There are degener ative changes in the spine and pelvis with no osseous metastatic disease identified. Abdomen/pelvis: Prostate is normal in size. No pathologic iliac chain or retroperitoneal adenopathy. There are a few shoddy bilateral inguinal lymph nodes once again. No acute abnormality involving the liver, gallbladder, spleen, pancreas, or adrenals. There is a simp le left sided renal cyst and also a stable hyperdense cyst versus small mass in the upper pole of the right kidney. No pelvic free fluid. There is colonic diverticulosis with no acute inflammatory change identified. IMPRESSION: 1. No metastatic disease identified. 2. Stable hyperdense cyst versus small mass in the upper pole of the right kidney. A renal ultrasound would be useful to differentiate these findings, specifically looking for the presence or absence bl ood flow. Signer Name: Kemar Burnette MD Signed: 04/03/2020 8:34 AM Workstation Name: [id number]
== END 2020-04-03 07:31 | disposition home or self-care (01) ==
LOC: CT 07:30
PROVIDERS: ATTEND Urology
DX: C61 Malignant neoplasm of prostate (principal); J98.11 Atelectasis; N28.1 Cyst of kidney, acquired; R59.0 Localized enlarged lymph nodes; M47.819 Spondylosis without myelopathy or radiculopathy, site unspecified
CPT/HCPCS: 74176

== ENCOUNTER 2020-09-06 13:39 | Emergency (ER) | payer MEDICARE ==
[2020-09-06 15:08] LABS: Albumin 3.2 g/dL (3.9-5); Calcium 9.2 mg/dL (8.4-10.2)
[2020-09-06 15:18] LABS: Basophils % (Auto) 0.3 % (0.0-1.8); Eosinophils % (Auto) 0.3 % (0.0-4.3); Hematocrit 32.3 % (35.5-45.6); Hemoglobin 10.5 gm/dl (11.8-15.2); Lymphocytes # (Auto) 1.4 K/mm3 (1.2-5.4); Lymphocytes % (Auto) 14.9 % (13.4-35.0); Mean Corpuscular HGB Conc 33 % (32-34); Mean Corpuscular Volume 79 fl (84-94); Monocytes # (Auto) 0.7 K/mm3 (0.0-0.8); Monocytes % (Auto) 7.4 % (0.0-7.3); Platelet Count 227 K/mm3 (140-440); Red Blood Count 4.09 M/mm3 (3.65-5.03); Red Cell Distribution Width 18.9 % (13.2-15.2)
[2020-09-06] MEDS ORDERED: ONDANSETRON 4 MG/2 ML INJ IV ONE (15:21)
[2020-09-06] MEDS ORDERED: methylPREDNISolone Sod Succinate 125 MG/2 ML INJ IV ONE (15:21)
[2020-09-06] MEDS ORDERED: diazePAM 10 MG/2 ML SYRINGE IV ONE (15:22)
--- NOTE | 2020-09-06 16:21 | Cat Scan Report ---
CT head/brain wo con INDICATION / CLINICAL INFORMATION: 70 years Male; syncope with head injury. TECHNIQUE: Routine CT head without contrast. All CT scans at this location are performed using CT dos e reduction for ALARA by means of automated exposure control. COMPARISON: The study is compared to the previous CT of 07/24/2019. 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 There is otherwise moderate cerebral white matter disease most con sistent with microvascular angiopathy. The findings also correlate with the prior exam. The ventricular system is unchanged in size and configuration. There is no clear CT evidence of acute intracranial hemorrhage or significant mass effect. ORBITS: No significant abnormality of visualized orbits. SINUSES / MASTOIDS: There is continued focal opacification along the visualized posterior left maxill caitie sinus. CRANIOCERVICAL JUNCTION: No significant abnormality. ADDITIONAL FINDINGS: None. IMPRESSION: 1. There is continued microvascular angiopathy as detailed above without CT evidence of acute intracr anial hemorrhage. Signer Name: Sean France MD Signed: 09/06/2020 4:16 PM Workstation Name: [id number]
[2020-09-06] MEDS: MORPHINE 4 MG/1 ML INJ IV ONE ×2 (16:27→18:54)
[2020-09-06] MEDS ORDERED: SODIUM CHLORIDE 0.9% 1000 ML 1,000 ML IV ONE (17:36)
[2020-09-06] MEDS ORDERED: MORPHINE 4 MG/1 ML INJ IV ONE (18:50)
--- NOTE | 2020-09-06 19:43 | Emergency Department Report ---
ED General Adult HPI - General Chief complaint: Extremity Injury, Lower Stated complaint: HIP PAIN Time Seen by Provider: 09/06/20 14:52 Source: patient, family Mode of arrival: Wheelchair Limitations: Physical Limitation - History of Present Illness Initial comments: The patient presents to the emergency department with a chief complaint of left leg pain. Patient states he has sciatica and has radiation of his pain into his thigh and lower. While the patient was checking in to the emergency department he said the pain was severely intense and he began to get sweaty and started to see black dots with narrowing of his vision and the patient passed out. Patient states the pain has been so severe at home he cannot walk up steps. Patient denies any chest pain, shortness breath, or abdominal pain. -: unknown Location: lower extremity Radiation: distal Severity scale (0 -10): 8 Quality: sharp, other (Burning) Consistency: constant Improves with: rest Worsens with: movement Associated Symptoms: denies other symptoms Treatments Prior to Arrival: none - Related Data Home Medications Medication Instructions Recorded Confirmed Last Taken Aspirin [Adult Aspirin] 81 mg PO DAILY 01/25/19 07/24/19 07/19/19 07:00 Atorvastatin [Lipitor] 80 mg PO QHS 01/25/19 07/24/19 07/18/19 Clopidogrel [Plavix] 75 mg PO QDAY 01/25/19 07/24/19 07/14/19 ISOSORBIDE MONOnitrate [Imdur ER] 30 mg PO DAILY 01/25/19 07/24/19 07/19/19 07:00 Metoprolol [Lopressor TAB] 25 mg PO BID 01/25/19 07/24/19 07/19/19 07:00 Nitroglycerin [Nitrostat] 0.4 mg SL Q5M PRN 01/25/19 07/24/19 Unknown Olmesartan/Hydrochlorothiazide 1 each PO DAILY 01/25/19 07/24/19 07/19/19 07:00 [Olmesartan-Hctz 40-25 mg Tab] Pantoprazole [Protonix TAB] 40 mg PO QDAY 01/25/19 07/24/19 07/19/19 07:00 cloNIDine [Catapres] 0.2 mg PO QHS 01/25/19 07/24/19 07/18/19 traMADoL [Ultram 50 MG tab] 50 mg PO Q4HR PRN 01/25/19 07/24/19 07/18/19 Previous Rx's Medication Instructions Recorded Last Taken Type HYDROcodone/APAP 5-325 [Adrian 1 each PO Q6HR PRN #12 tablet 09/06/20 Unknown Rx 5/325] Prednisone [predniSONE 10 mg 10 mg PO .TAPER #1 tab.ds.pk 09/06/20 Unknown Rx (6-Day Pack, 21 Tabs)] methOCARBAMOL [Robaxin TAB] 500 mg PO BID #12 tab 09/06/20 Unknown Rx Allergies Allergy/AdvReac Type Severity Reaction Status Date / Time No Known Allergies Allergy Verified 09/06/20 13:50 ED Review of Systems ROS: Stated complaint: HIP PAIN Other details as noted in HPI Comment: All other systems reviewed and negative Constitutional: denies: chills, fever Eyes: denies: eye pain, eye discharge, vision change ENT: denies: ear pain, throat pain Respiratory: denies: cough, shortness of breath, wheezing Cardiovascular: denies: chest pain, palpitations Endocrine: no symptoms reported Gastrointestinal: denies: abdominal pain, nausea, diarrhea Genitourinary: denies: urgency, dysuria Musculoskeletal: other (leg pain). denies: back pain, joint swelling, arthralgia Skin: denies: rash, lesions Neurological: denies: headache, weakness, paresthesias Psychiatric: denies: anxiety, depression Hematological/Lymphatic: denies: easy bleeding, easy bruising ED Past Medical Hx - Past Medical History Hx Hypertension: Yes Hx Heart Attack/AMI: No Hx GERD: Yes (ON DAILY MEDS) Hx Liver Disease: No Hx Renal Disease: No Hx HIV: No - Surgical History Hx Coronary Stent: Yes (2005 X 1 , 01/15/19 X 1) Hx Pacemaker: No Hx Internal Defibrillator: No - Social History Smoking Status: Never Smoker Substance Use Type: None - Medications Home Medications: Home Medications Medication Instructions Recorded Confirmed Last Taken Type Aspirin [Adult Aspirin] 81 mg PO DAILY 01/25/19 07/24/19 07/19/19 07:00 History Atorvastatin [Lipitor] 80 mg PO QHS 01/25/19 07/24/19 07/18/19 History Clopidogrel [Plavix] 75 mg PO QDAY 01/25/19 07/24/19 07/14/19 History ISOSORBIDE MONOnitrate [Imdur ER] 30 mg PO DAILY 01/25/19 07/24/19 07/19/19 07:00 History Metoprolol [Lopressor TAB] 25 mg PO BID 01/25/19 07/24/19 07/19/19 07:00 History Nitroglycerin [Nitrostat] 0.4 mg SL Q5M PRN 01/25/19 07/24/19 Unknown History Olmesartan/Hydrochlorothiazide 1 each PO DAILY 01/25/19 07/24/19 07/19/19 07:00 History [Olmesartan-Hctz 40-25 mg Tab] Pantoprazole [Protonix TAB] 40 mg PO QDAY 01/25/19 07/24/19 07/19/19 07:00 History cloNIDine [Catapres] 0.2 mg PO QHS 01/25/19 07/24/19 07/18/19 History traMADoL [Ultram 50 MG tab] 50 mg PO Q4HR PRN 01/25/19 07/24/19 07/18/19 History HYDROcodone/APAP 5-325 [Adrian 1 each PO Q6HR PRN #12 tablet 09/06/20 Unknown Rx 5/325] Prednisone [predniSONE 10 mg 10 mg PO .TAPER #1 tab.ds.pk 09/06/20 Unknown Rx (6-Day Pack, 21 Tabs)] methOCARBAMOL [Robaxin TAB] 500 mg PO BID #12 tab 09/06/20 Unknown Rx ED Physical Exam - General Limitations: Physical Limitation General appearance: alert, in no apparent distress - Head Head exam: Present: atraumatic, normocephalic - Eye Eye exam: Present: normal appearance - ENT ENT exam: Present: mucous membranes dry - Neck Neck exam: Present: normal inspection - Respiratory Respiratory exam: Present: normal lung sounds bilaterally. Absent: respiratory distress - Cardiovascular Cardiovascular Exam: Present: regular rate, normal rhythm. Absent: systolic murmur, diastolic murmur, rubs, gallop - GI/Abdominal GI/Abdominal exam: Present: soft, normal bowel sounds. Absent: distended, tenderness - Rectal Rectal exam: Present: deferred - Extremities Exam Extremities exam: Present: normal inspection - Back Exam Back exam: Present: normal inspection - Neurological Exam Neurological exam: Present: alert, oriented X3, CN II-XII intact, motor sensory deficit, other (Positives left straight leg raise) - Psychiatric Psychiatric exam: Present: normal affect, normal mood - Skin Skin exam: Present: warm, dry, intact, normal color. Absent: rash ED Course Vital Signs 09/06/20 09/06/20 09/06/20 13:51 13:57 14:11 Temperature Pulse Rate 76 72 65 Respiratory 24 22 Rate Blood Pressure 97/78 Blood Pressure 97/68 [Right] O2 Sat by Pulse 97 98 98 Oximetry 09/06/20 09/06/20 14:16 14:31 Temperature 98.7 F Pulse Rate 68 98 H Respiratory 10 L Rate Blood Pressure 101/50 Blood Pressure [Right] O2 Sat by Pulse 97 Oximetry ED Medical Decision Making - Lab Data Result diagrams: 09/06/20 14:30 09/06/20 14:30 Lab Results 09/06/20 09/06/20 09/06/20 Range/Units 14:01 14:30 14:30 WBC 9.6 (4.5-11.0) K/mm3 RBC 4.09 (3.65-5.03) M/mm3 Hgb 10.5 L (11.8-15.2) gm/dl Hct 32.3 L (35.5-45.6) % MCV 79 L (84-94) fl MCH 26 L (28-32) pg MCHC 33 (32-34) % RDW 18.9 H (13.2-15.2) % Plt Count 227 (140-440) K/mm3 Lymph % (Auto) 14.9 (13.4-35.0) % [place] % (Auto) 7.4 H (0.0-7.3) % Eos % (Auto) 0.3 (0.0-4.3) % Baso % (Auto) 0.3 (0.0-1.8) % Lymph # (Auto) 1.4 (1.2-5.4) K/mm3 [place] # (Auto) 0.7 (0.0-0.8) K/mm3 Eos # (Auto) 0.0 (0.0-0.4) K/mm3 Baso # (Auto) 0.0 (0.0-0.1) K/mm3 Seg Neutrophils % 77.1 H (40.0-70.0) % Seg Neutrophils # 7.4 (1.8-7.7) K/mm3 Sodium 136 L (137-145) mmol/L Potassium 4.6 (3.6-5.0) mmol/L Chloride 99.4 (98-107) mmol/L Carbon Dioxide 21 L (22-30) mmol/L Anion Gap 20 mmol/L BUN 36 H (9-20) mg/dL Creatinine 2.2 H (0.8-1.3) mg/dL Estimated GFR 36 ml/min BUN/Creatinine Ratio 16 % Glucose 154 H (75-100) mg/dL POC Glucose 149 H (70-105) mg/dL Calcium 9.2 (8.4-10.2) mg/dL Total Bilirubin 0.40 (0.1-1.2) mg/dL AST 26 (5-40) units/L ALT 15 (7-56) units/L Alkaline Phosphatase 236 H (35-129) units/L Total Protein 7.2 (6.3-8.2) g/dL Albumin 3.2 L (3.9-5) g/dL Albumin/Globulin Ratio 0.8 % - EKG Data -: EKG Interpreted by Nh EKG shows normal: sinus rhythm Rate: normal - EKG Data Interpretation: other (Nonspecific T wave abnormalities) - Radiology Data Radiology results: report reviewed Critical care attestation.: If time is entered above; I have spent that time in minutes in the direct care of this critically ill patient, excluding procedure time. ED Disposition Clinical Impression: Vaso vagal episode, Sciatica, Dehydration Disposition: - TO HOME OR SELFCARE Is pt being admited?: No Does the pt Need Aspirin: No Condition: Stable Instructions: Syncope (ED), Near-Syncope, Dehydration, Adult, [id number], Radicular Pain Prescriptions: HYDROcodone/APAP 5-325 [Adrian 5/325] 1 each PO Q6HR PRN #12 tablet PRN Reason: Pain Prednisone [predniSONE 10 mg (6-Day Pack, 21 Tabs)] 10 mg PO .TAPER #1 tab.ds.pk methOCARBAMOL [Robaxin TAB] 500 mg PO BID #12 tab Referrals: CHINO MAE MD [Staff Physician] - 3-5 Days INGE OLVERA MD [Staff Physician] - 3-5 Days
[2020-09-06 21:39] VITALS: BP 130/75
--- NOTE | 2020-09-08 17:35 | Electrocardiograph Report ---
[facility] Test Date: 2020-09-06 Test Time: 14:22:23 Pat Name: JANNETH MA Department: Room: Gender: M Pants Closer: : 1950 Requested By: ANDREW ROSS Order Number: [id number] Reading MD: Miguel Morton Measurements Intervals [place] Rate: 68 P: -13 CA: 139 QRS: 44 QRSD: 82 T: 88 QT: 378 QTc: 402 Interpretive Statements Sinus rhythm Nonspecific T abnormalities, lateral leads No previous ECG available for comparison Electronically Signed On 09-08-2020 17:35:04 EDT by Miguel Morton
== END 2020-09-06 21:30 | disposition home or self-care (01) ==
LOC: ED 13:39
DX: E86.0 Dehydration (principal); M54.32 Sciatica, left side; R55 Syncope and collapse; I10 Essential (primary) hypertension
CPT/HCPCS: 36415; 70450; 80053; 82962; 85025; 93005; 96361; 96374; 96375; 96376; 99284; J2270; J2405; J2930; J3360; J7030

== ENCOUNTER 2021-05-05 13:15 | Emergency (ER) | payer MEDICARE ==
[2021-05-05] MEDS ORDERED: SODIUM CHLORIDE 0.9% 1000 ML 1,000 ML IV ONE (13:37)
--- NOTE | 2021-05-05 14:26 | XRay Report ---
CHEST 1 VIEW 05/05/2021 1:53 PM INDICATION / CLINICAL INFORMATION: Syncope. COMPARISON: 12/26/2020 FINDINGS: SUPPORT DEVICES: None. HEART / MEDIASTINUM: No significant abnormality. LUNGS / PLEURA: Mild increased interstitial process opacities in bilateral lungs No pneumothorax. Signer Name: Jarret Berry MD Signed: 05/05/2021 2:21 PM Workstation Name: [employer][id number]
[2021-05-05 14:36] LABS: Monocytes # (Auto) 0.3 K/mm3 (0.0-0.8); Monocytes % (Auto) 6.6 % (0.0-7.3)
[2021-05-05 14:39] LABS: Basophils % (Auto) 0.6 % (0.0-1.8); Hematocrit 31.2 % (35.5-45.6); Hemoglobin 10.1 gm/dl (11.8-15.2); Lymphocytes # (Auto) 0.6 K/mm3 (1.2-5.4); Lymphocytes % (Auto) 14.3 % (13.4-35.0); Mean Corpuscular HGB Conc 32 % (32-34); Mean Corpuscular Volume 94 fl (84-94); Platelet Count 250 K/mm3 (140-440); Red Blood Count 3.32 M/mm3 (3.65-5.03); Red Cell Distribution Width 20.5 % (13.2-15.2)
[2021-05-05 14:40] LABS: INR 0.92 (0.87-1.13)
[2021-05-05 15:01] LABS: Creatine Kinase MB 2.1 ng/mL (0.0-4.0)
[2021-05-05 15:08] LABS: Alanine Aminotransferase 7 units/L (7-56); Albumin 4.2 g/dL (3.9-5); BUN/Creatinine Ratio 9; Blood Urea Nitrogen 9 mg/dL (9-20); Calcium 7.6 mg/dL (8.4-10.2); Hemolysis Index 151
--- NOTE | 2021-05-05 15:22 | Cat Scan Report ---
CT HEAD WITHOUT CONTRAST INDICATION / CLINICAL INFORMATION: Syncope. TECHNIQUE: All CT scans at this location are performed using CT dose reduction for ALARA by means of automated e xposure control. COMPARISON: CT 12/26/2020 and 07/24/2019 FINDINGS: HEMORRHAGE: No evidence of intracranial hemorrhage or extra-axial fluid collection. EXTRA-AXIAL SPACES: Cortical sulci and sylvian fissures are mildly enlarged reflecting a degree of pa renchymal volume loss which is within normal limits for the patient's age of 70 years. Basilar cister ns have an unremarkable appearance. VENTRICULAR SYSTEM: The third and lateral ventricles are mildly enlarged reflecting presence of age r elated parenchymal volume loss. CEREBRAL PARENCHYMA: Periventricular and deep white matter lucency is observed. This is probably seco ndary to microvascular ischemic change. There is no indication of recent infarction. Several remote s mall deep infarctions are seen in a bilateral gangliocapsular distribution. Similar findings were pre sent on previous study. MIDLINE SHIFT OR HERNIATION: There is no mass effect. CEREBELLUM / BRAINSTEM: Brainstem has an unremarkable appearance. Age related cerebellar atrophy is n oted. MIDLINE STRUCTURES:Pituitary gland has an unremarkable appearance. No abnormalities are seen in the p ineal region. INTRACRANIAL VESSELS:Calcified atherosclerotic plaque is present along the course of the cavernous se gments of both internal carotid arteries. Similar findings are seen at the distal vertebral arteries. CRANIOCERVICAL JUNCTION:No significant abnormality. ORBITS: visualized portions of the orbits have an unremarkable appearance. SOFT TISSUES of HEAD: No significant abnormality. CALVARIUM: Evaluation of bone windows reveals no abnormalities. PARANASAL SINUSES / MASTOID AIR CELLS: A small retention cyst or polyp is seen in the dependent porti on of the left maxillary sinus. Frontal sinuses are not developed in this individual. Paranasal sinus es are otherwise free from inflammatory mucosal disease. Mastoid air cells are normally pneumatized. ADDITIONAL FINDINGS: None. IMPRESSION: 1. Mild age-related parenchymal volume loss and microvascular ischemic change. 2. Multiple remote small deep infarctions in a bilateral gangliocapsular distribution. Similar findin gs were present on previous study. 3. No acute intracranial abnormality. Signer Name: David Ariza MD Signed: 05/05/2021 3:17 PM Workstation Name: [id number]
--- NOTE | 2021-05-05 15:31 | Emergency Department Report ---
ED Syncope HPI - General Chief Complaint: Syncope Stated Complaint: WEAKNESS/NEAR SYNCOPE Time Seen by Provider: 05/05/21 13:32 Source: patient, EMS Exam Limitations: no limitations - History of Present Illness Initial Comments: syncope and near syncope today as he was havig his hair cut no chets pain or sob, , recurent problems Timing/Prior Episodes: no prior history Precipitating Factors: Positive: none Loss of Consciousness: no loss of consciousness - Related Data Allergies/Adverse Reactions: Allergies No Known Allergies Allergy (Verified 01/02/21 13:54) Home Medications: Ambulatory Orders Aspirin EC [Halfprin EC] 81 mg PO QPM 12/27/20 AtorvaSTATin [Lipitor] 80 mg PO QHS 12/27/20 Clopidogrel [Plavix] 75 mg PO QDAY 12/27/20 Gabapentin 300 mg PO BID 12/27/20 Metoprolol Succinate [Toprol Xl] 25 mg PO BID 12/27/20 Olmesartan/Hydrochlorothiazide [Benicar HCT 40-25 mg] 1 tab PO QDAY 12/27/20 Omeprazole 40 mg PO DAILY 12/27/20 Tamsulosin [Flomax] 0.4 mg PO QPM 12/27/20 Pantoprazole [Protonix TAB] 40 mg PO QDAY tablet 01/01/21 Cholecalciferol Vit D3 [Vitamin D3 1,000 UNIT TAB] 1,000 unit PO BID 01/02/21 Meloxicam [Mobic] 15 mg PO QPM 01/02/21 ED Review of Systems ROS: Stated complaint: WEAKNESS/NEAR SYNCOPE Other details as noted in HPI Constitutional: denies: chills, fever Eyes: denies: eye pain, eye discharge, vision change ENT: denies: ear pain, throat pain Respiratory: denies: cough, shortness of breath, wheezing Cardiovascular: denies: chest pain, palpitations Endocrine: no symptoms reported Gastrointestinal: denies: abdominal pain, nausea, diarrhea Genitourinary: denies: urgency, dysuria Musculoskeletal: denies: back pain, joint swelling, arthralgia Skin: denies: rash, lesions Neurological: denies: headache, weakness, paresthesias Psychiatric: denies: anxiety, depression Hematological/Lymphatic: denies: easy bleeding, easy bruising ED Past Medical Hx - Past Medical History Previous Medical History?: Yes Hx Hypertension: Yes Hx GERD: Yes (ON DAILY MEDS) Additional medical history: prostate, bone CA - Surgical History Hx Coronary Stent: Yes (2005 X 1 , 01/15/19 X 1) - Social History Smoking Status: Never Smoker Substance Use Type: None - Medications Home Medications: Home Medications Medication Instructions Recorded Confirmed Last Taken Type Aspirin EC [Halfprin EC] 81 mg PO QPM 12/27/20 01/02/21 12/25/20 History AtorvaSTATin [Lipitor] 80 mg PO QHS 12/27/20 12/27/20 12/25/20 History Clopidogrel [Plavix] 75 mg PO QDAY 12/27/20 12/27/20 12/26/20 History Gabapentin 300 mg PO BID 12/27/20 12/27/20 12/26/20 History Metoprolol Succinate [Toprol Xl] 25 mg PO BID 12/27/20 12/27/20 12/26/20 History Olmesartan/Hydrochlorothiazide 1 tab PO QDAY 12/27/20 12/27/20 12/26/20 History [Benicar HCT 40-25 mg] Omeprazole 40 mg PO DAILY 12/27/20 01/02/21 12/26/20 History Tamsulosin [Flomax] 0.4 mg PO QPM 12/27/20 01/02/21 12/25/20 History Pantoprazole [Protonix TAB] 40 mg PO QDAY tablet 01/01/21 Unknown Rx Cholecalciferol Vit D3 [Vitamin D3 1,000 unit PO BID 01/02/21 01/02/21 12/26/20 History 1,000 UNIT TAB] Meloxicam [Mobic] 15 mg PO QPM 01/02/21 01/02/21 12/25/20 History ED Physical Exam - General Limitations: No Limitations General appearance: alert, in no apparent distress - Head Head exam: Present: atraumatic, normocephalic - Eye Eye exam: Present: normal appearance - ENT ENT exam: Present: mucous membranes moist - Neck Neck exam: Present: normal inspection - Respiratory Respiratory exam: Present: normal lung sounds bilaterally. Absent: respiratory distress - Cardiovascular Cardiovascular Exam: Present: regular rate, normal rhythm. Absent: systolic murmur, diastolic murmur, rubs, gallop - GI/Abdominal GI/Abdominal exam: Present: soft, normal bowel sounds - Rectal Rectal exam: Present: deferred - Extremities Exam Extremities exam: Present: normal inspection - Back Exam Back exam: Present: normal inspection - Neurological Exam Neurological exam: Present: alert, oriented X3 - Psychiatric Psychiatric exam: Present: normal affect, normal mood - Skin Skin exam: Present: warm, dry, intact, normal color. Absent: rash ED Course Vital Signs 05/05/21 05/05/21 05/05/21 13:20 13:35 13:46 Temperature 97.9 F Pulse Rate 72 80 72 Respiratory 16 35 H 17 Rate Blood Pressure 130/70 Blood Pressure 129/56 [Left] O2 Sat by Pulse 100 100 Oximetry 05/05/21 05/05/21 13:53 14:00 Temperature Pulse Rate 71 Respiratory 17 Rate Blood Pressure 124/68 Blood Pressure [Left] O2 Sat by Pulse 98 100 Oximetry ED Medical Decision Making - Lab Data Result diagrams: 05/05/21 13:45 05/05/21 13:45 - EKG Data -: EKG Interpreted by Oh EKG shows normal: sinus rhythm Rate: normal - EKG Data Interpretation: no acute changes, other (pvcs) - Radiology Data Radiology results: report reviewed, image reviewed - Medical Decision Making work up unremarkable , negative ct and x ray , vss no dsitress, recurrent problems Critical care attestation.: If time is entered above; I have spent that time in minutes in the direct care of this critically ill patient, excluding procedure time. ED Disposition Clinical Impression: Syncope Disposition: 01 HOME / SELF CARE / HOMELESS Is pt being admited?: No Does the pt Need Aspirin: No Condition: Stable Instructions: Syncope (ED), Syncope, [id number], Syncope
[2021-05-05 15:58] VITALS: BP 172/82
--- NOTE | 2021-05-06 09:35 | Electrocardiograph Report ---
[facility] Test Date: 2021-05-05 Test Time: 13:41:01 Pat Name: JANNETH MA Department: Room: Gender: M Senior Principal: LUBNA : 1950 Requested By: KIRIT CARLISLE Order Number: [id number] Reading MD: Lisa Gatica Measurements Intervals [place] Rate: 73 P: -23 NH: 99 QRS: 33 QRSD: 81 T: 169 QT: 383 QTc: 409 Interpretive Statements Sinus rhythm PREMATURE COMPLEX, VENT OR ABERRANT SUPRAVENT Probable left atrial enlargement Nonspecific T abnrm, anterolateral leads Compared to ECG 12/26/2020 12:37:35 T-wave abnormality no longer present Possible ischemia no longer present Electronically Signed On 05-06-2021 9:35:11 EDT by Lisa Gatica
== END 2021-05-05 15:57 | disposition home or self-care (01) ==
LOC: ED 13:15
DX: R55 Syncope and collapse (principal); I10 Essential (primary) hypertension
CPT/HCPCS: 36415; 70450; 71045; 80053; 82550; 82553; 83735; 84484; 85025; 85610; 93005; 96360; 99285; J7030; Q0162

== ENCOUNTER 2021-05-11 12:19 | Emergency (ER) | payer MEDICARE, BC ==
--- NOTE | 2021-05-11 15:18 | Event Note ---
ED Screening Note ED Screening Note: 70-year-old male presents to the ED complaining of a headache after a fall x6 days ago. Patient unable to recall fall. Patient has a history of bone cancer. Bruising noted to the back of the cervical area. Patient does has a history of bone cancer. Patient complaining of a headache with nausea. stated that patient increase headache since Friday. Patient was previous seen at the hospital 6 days ago for dizziness prior to fall. This initial assessment/diagnostic orders/clinical plan/treatment(s) is/are subject to change based on patients health status, clinical progression and re- assessment by fellow clinical providers in the ED. Further treatment and workup at subsequent clinical providers discretion. Patient/guardian urged not to elope from the ED as their condition may be serious if not clinically assessed and managed. Initial orders include: Head CT without
--- NOTE | 2021-05-11 15:43 | Cat Scan Report ---
CT head/brain wo con INDICATION / CLINICAL INFORMATION: 70 years Male; headache,after fall. TECHNIQUE: Routine CT head without contrast. All CT scans at this location are performed using CT dos e reduction for ALARA by means of automated exposure control. COMPARISON: The study is compared to previous CT of 05/05/2021. FINDINGS: BRAIN / INTRACRANIAL CONTENTS: The motion degrades image quality. However, there is extensive cerebra l white matter disease most consistent with microvascular angiopathy. The findings also remain compat ible with old the infarct along the gangliocapsular regions and correlate with the earlier CT. There is no clear evidence of acute intracranial hemorrhage or significant mass effect. There is continued mild cerebral atrophy with associated mild prominence of the ventricular system wh ich appears stable. ORBITS: No significant abnormality of visualized orbits. SINUSES / MASTOIDS: No significant abnormality in the visualized paranasal sinuses or mastoid air ana maría ls. CRANIOCERVICAL JUNCTION: No significant abnormality. ADDITIONAL FINDINGS: There is relative heterogeneous appearance of the clivus which correlates with t he previous MRI of 12/29/2020 and correlation would again be needed at. IMPRESSION: 1. There is continued extensive microvascular angiopathy as described without clear CT ends of acute intracranial hemorrhage. Signer Name: Sean France MD Signed: 05/11/2021 3:39 PM Workstation Name: [id number]
[2021-05-11] MEDS ORDERED: traMADol 50 MG TAB PO ONE (16:26)
--- NOTE | 2021-05-11 17:17 | Cat Scan Report ---
CT cervical spine wo con INDICATION / CLINICAL INFORMATION: 70 years Male; fall. TECHNIQUE: Axial CT images of the cervical spine were obtained. Sagittal and coronal reformatted images were pr oduced. All CT scans at this location are performed using CT dose reduction for ALARA by means of aut omated exposure control. COMPARISON: None available. FINDINGS: POST-SURGICAL CHANGES: None. ALIGNMENT: This mild reversal of the cervical lordosis and curvature the cervical spine, convex towar d the right. However, there is no significant spondylolisthesis. VERTEBRAE: There is extensive heterogeneous appearance of the visualized bony structures, particularl y involving the spine with mixed sclerotic and lytic appearance most consistent with diffuse metastat ic disease given the patient's reported history of unspecified "bone cancer" there are multilevel deg enerative the disc changes particularly from C3-4 to C6-7. However, there is no gross CT evidence of acute pathologic fracture of the cervical spine. INTRAVERTEBRAL DISCS: There is mild to moderate left neural from narrowing at C2-3. The spondylosis C 3-4 effaces the ventral subarachnoid space. There is marked left neural foraminal narrowing. There is also marked left neural foraminal narrowing at C4-5. Moderate narrowing is seen on the right . The spondylosis at C5-6 effaces the ventral subarachnoid space and right lateral recess. There is m arked right neural foraminal narrowing. There is marked right neural from narrowing at C6-7 with effacement of the right lateral recess and v entral subarachnoid space. Milder narrowing is seen on the left. PARASPINAL SOFT TISSUES: No prevertebral soft tissue fluid collections are identified. ADDITIONAL FINDINGS: None. IMPRESSION: 1. There is extensive heterogeneous appearance of the bony structures, particularly the visualized sp ine most consistent with diffuse metastatic disease given the patient's history and correlation would be needed. 2. There is no clear CT evidence of associated pathologic fracture of the cervical spine. 3. There are multilevel degenerative changes as detailed above. Signer Name: Sean France MD Signed: 05/11/2021 5:12 PM Workstation Name: [id number]
--- NOTE | 2021-05-11 18:09 | Emergency Department Report ---
ED Headache HPI - General Chief Complaint: Headache Stated Complaint: FALL SEVERE HEADACHE Time Seen by Provider: 05/11/21 16:15 Source: patient, family Exam Limitations: no limitations - History of Present Illness Initial Comments: Pt fell last Sat and hit his head. takes blood thinners, has been c/o CAMARENA since yesterday. Has metastatic prostate CA; and bladder CA in remission. BP usually runs low pt was seen here last week for syncope which is recurrent fell and hit head and on blood thinnner Timing/Duration: other (days ) Quality: mild Head Injury Location: frontal Recent Head Trauma: head trauma > 24 hrs ago Modifying Factors: worse with: cold therapy, immobilization Associated Symptoms: denies: confusion, fatigue, facial pain, loss of consciousness, nausea/vomiting Allergies/Adverse Reactions: Allergies No Known Allergies Allergy (Verified 01/02/21 13:54) Home Medications: Ambulatory Orders Aspirin EC [Halfprin EC] 81 mg PO QPM 12/27/20 AtorvaSTATin [Lipitor] 80 mg PO QHS 12/27/20 Clopidogrel [Plavix] 75 mg PO QDAY 12/27/20 Gabapentin 300 mg PO BID 12/27/20 Metoprolol Succinate [Toprol Xl] 25 mg PO BID 12/27/20 Olmesartan/Hydrochlorothiazide [Benicar HCT 40-25 mg] 1 tab PO QDAY 12/27/20 Omeprazole 40 mg PO DAILY 12/27/20 Tamsulosin [Flomax] 0.4 mg PO QPM 12/27/20 Pantoprazole [Protonix TAB] 40 mg PO QDAY tablet 01/01/21 Cholecalciferol Vit D3 [Vitamin D3 1,000 UNIT TAB] 1,000 unit PO BID 01/02/21 Meloxicam [Mobic] 15 mg PO QPM 01/02/21 ED Review of Systems ROS: Stated complaint: FALL SEVERE HEADACHE Other details as noted in HPI Constitutional: denies: chills, fever Eyes: denies: eye pain, eye discharge, vision change ENT: denies: ear pain, throat pain Respiratory: denies: cough, shortness of breath, wheezing Cardiovascular: denies: chest pain, palpitations Endocrine: no symptoms reported Gastrointestinal: denies: abdominal pain, nausea, diarrhea Genitourinary: denies: urgency, dysuria Musculoskeletal: denies: back pain, joint swelling, arthralgia Skin: denies: rash, lesions Neurological: denies: headache, weakness, paresthesias Psychiatric: denies: anxiety, depression Hematological/Lymphatic: denies: easy bleeding, easy bruising ED Past Medical Hx - Past Medical History Hx Hypertension: Yes Hx GERD: Yes (ON DAILY MEDS) Additional medical history: prostate, bone CA - Surgical History Hx Coronary Stent: Yes (2005 X 1 , 01/15/19 X 1) - Social History Smoking Status: Never Smoker Substance Use Type: None - Medications Home Medications: Home Medications Medication Instructions Recorded Confirmed Last Taken Type Aspirin EC [Halfprin EC] 81 mg PO QPM 12/27/20 01/02/21 12/25/20 History AtorvaSTATin [Lipitor] 80 mg PO QHS 12/27/20 12/27/20 12/25/20 History Clopidogrel [Plavix] 75 mg PO QDAY 12/27/20 12/27/20 12/26/20 History Gabapentin 300 mg PO BID 12/27/20 12/27/20 12/26/20 History Metoprolol Succinate [Toprol Xl] 25 mg PO BID 12/27/20 12/27/20 12/26/20 History Olmesartan/Hydrochlorothiazide 1 tab PO QDAY 12/27/20 12/27/20 12/26/20 History [Benicar HCT 40-25 mg] Omeprazole 40 mg PO DAILY 12/27/20 01/02/21 12/26/20 History Tamsulosin [Flomax] 0.4 mg PO QPM 12/27/20 01/02/21 12/25/20 History Pantoprazole [Protonix TAB] 40 mg PO QDAY tablet 01/01/21 Unknown Rx Cholecalciferol Vit D3 [Vitamin D3 1,000 unit PO BID 01/02/21 01/02/21 12/26/20 History 1,000 UNIT TAB] Meloxicam [Mobic] 15 mg PO QPM 01/02/21 01/02/21 12/25/20 History ED Physical Exam - General Limitations: Physical Limitation General appearance: alert, in no apparent distress - Head Head exam: Present: atraumatic, normocephalic - Eye Eye exam: Present: normal appearance - ENT ENT exam: Present: mucous membranes moist - Neck Neck exam: Present: tenderness - Respiratory Respiratory exam: Present: normal lung sounds bilaterally. Absent: respiratory distress - Cardiovascular Cardiovascular Exam: Present: regular rate, normal rhythm. Absent: systolic murmur, diastolic murmur, rubs, gallop - GI/Abdominal GI/Abdominal exam: Present: soft, normal bowel sounds - Rectal Rectal exam: Present: deferred - Extremities Exam Extremities exam: Present: normal inspection - Back Exam Back exam: Present: normal inspection - Neurological Exam Neurological exam: Present: alert, oriented X3 - Psychiatric Psychiatric exam: Present: normal affect, normal mood - Skin Skin exam: Present: warm, dry, intact, normal color. Absent: rash ED Course Vital Signs 05/11/21 13:01 Temperature 97.7 F Pulse Rate 66 Respiratory 18 Rate Blood Pressure 93/60 O2 Sat by Pulse 99 Oximetry ED Medical Decision Making - Radiology Data Radiology results: report reviewed - Medical Decision Making head cty and neck CT negatve for bleed or fractures mets noted pt is aware pain meds given Critical care attestation.: If time is entered above; I have spent that time in minutes in the direct care of this critically ill patient, excluding procedure time. ED Disposition Clinical Impression: Headache, Cervical arthritis Disposition: HOME / SELF CARE / HOMELESS Is pt being admited?: No Does the pt Need Aspirin: No Condition: Stable Instructions: Degenerative Disk Disease, Radicular Pain Referrals: JAZ GARCIA MD [Primary Care Provider] - 3-5 Days
[2021-05-11 18:33] VITALS: BP 79/50
== END 2021-05-11 18:33 | disposition home or self-care (01) ==
LOC: ED 12:19
DX: R51.9 Headache, unspecified (principal); M19.09 Primary osteoarthritis, other specified site; M54.2 Cervicalgia; I10 Essential (primary) hypertension; K21.9 Gastro-esophageal reflux disease without esophagitis; Z79.899 Other long term (current) drug therapy
CPT/HCPCS: 70450; 72125; 99283

== ENCOUNTER 2021-07-19 10:46 | Outpatient (CLI) | payer MEDICARE, BC ==
--- NOTE | 2021-07-19 12:28 | Cat Scan Report ---
CT ABDOMEN AND PELVIS WITHOUT CONTRAST HISTORY: Z85.51. Restaging of prostate cancer. COMPARISON: 04/03/2020 TECHNIQUE: Axial CT images were obtained through the abdomen and pelvis without IV contrast. Sagittal and coronal reformatted images. All CT scans at this location are performed using CT dose reduction for ALARA by means of automated exposure control. FINDINGS: CT ABDOMEN: Lung Bases: There is minor linear atelectasis in both lower lobes. No nodule, infiltrate or effusion. Large hiatal hernia is unchanged. Liver: No significant abnormality. Biliary: No significant abnormality. Spleen: No significant abnormality. Unenlarged. Pancreas: No significant abnormality. Adrenals: No significant abnormality. Kidneys: Stable hyperdense 2.2 cm cyst at the superior pole of the right kidney. Stable simple appear ing 1.6 cm cyst at the lower pole of the left kidney. No nephrolithiasis or hydronephrosis. Lymphatics: No lymphadenopathy. Vasculature: Moderate to severe atherosclerotic disease is identified in the aorta and iliac arteries without acute abnormality. No aneurysm. Bowel/Peritoneum: No significant abnormality. No free air. No free fluid. Mild diverticulosis of the distal colon is noted. CT PELVIS: : No significant abnormality. Osseous Structures: Diffuse sclerosis has developed in the lower ribs bilaterally. Diffuse sclerosis has developed throughout multiple lower thoracic and upper lumbar vertebra. Large areas of sclerosis have developed in both iliac bones, bilateral ischio means and proximal femurs. This is new since the previous exam. Pathologic fracture is identified along the inferior endplate of L2. There are multip le nondisplaced posterior rib fractures including ribs 7-9 on the right and 7, 8, 10 and 11 on the le ft. Additional Findings: None IMPRESSION: Extensive bony sclerosis has developed throughout the lower ribs, spine, pelvis and proximal femurs c onsistent with new osseous metastatic disease. Pathologic fractures are identified at L2 and multiple bilateral posterior ribs. No visceral mass or adenopathy is appreciated. Stable renal cysts. Large hiatal hernia. Signer Name: Trent Mabry Jr, MD Signed: 07/19/2021 12:24 PM Workstation Name: [id number]
== END 2021-07-19 10:47 | disposition home or self-care (01) ==
LOC: CT 10:46
PROVIDERS: ATTEND Urology
DX: N28.1 Cyst of kidney, acquired (principal); K44.9 Diaphragmatic hernia without obstruction or gangrene; I25.10 Atherosclerotic heart disease of native coronary artery without angina pectoris; R10.9 Unspecified abdominal pain; Z85.51 Personal history of malignant neoplasm of bladder
CPT/HCPCS: 74176